=== PATIENT | female | born 1970 | race Two or more races ===

== ENCOUNTER → 2020-08-16 08:29 | Outpatient (BNVA) | payer MEDICARE, MEDICAID, SELFPAY | PROVIDERS: PCP Family Medicine; Referring Provider Family Medicine; Visit Provider Anesthesiology | DX: M54.16 Radiculopathy, lumbar region (principal); M46.1 Sacroiliitis, not elsewhere classified; G89.4 Chronic pain syndrome | CPT/HCPCS: 99212 ==

== ENCOUNTER 2020-12-29 06:18 | Day surgery (SDC) | payer MEDICARE, MEDICAID, SELFPAY ==
--- NOTE | ~2020-12-29 | FL_ITS ---
EXAMINATION: XR FLUOROSCOPY WITH IMAGES CLINICAL INFORMATION: spinal stim trial COMPARISON: None. TECHNIQUE: Fluoroscopy performed by Dr. Will Crane. Fluoroscopy time: 1.3 minutes DAP: 5.7 Gycm2 Images: 4 FL/FL guidance in OR FINDINGS/IMPRESSION: Spinal stimulator lead terminates at the level of T8 and T9, assuming 12 rib-bearing vertebral bodies. A separate stimulated lead is present along the posterior margin of the right sacral ala at the level of S3, likely in the region of the dorsal rami.
[2020-12-29 06:41] VITALS: BP 110/69; PULSE 55; RESP 18; TEMP 36.1; O2SAT 99; BMI 27.4
[2020-12-29] MEDS: Lactated Ringers 1,000 ML 50 ML IV (07:02)
--- NOTE | 2020-12-29 07:07 | MHC.SHP ---
Pre-Procedural Eval Section B Chief Complaint: Lumbar Radiculopathy Chronic, Sacroiliitis Details of Present Illness: as above Relevant Family History (Specify if Yes): No Relevant Social History: None Present Medications: see Short Stay [facility] assessment Medical History: No relevant PMH History of Previous Operations: No relevant previous surgery Allergies: Allergies Allergy/AdvReac Type Severity Reaction Status Date / Time apple [APPLE] Allergy Severe ANAPHYLAXIS Verified 12/29/20 06:39 morphine [MORPHINE] Allergy Severe RASH Verified 12/29/20 06:39 naproxen [From NAPROSYN] Allergy Severe ANAPHYLAXIS Verified 12/29/20 06:39 shellfish derived Allergy Severe RASH Verified 12/29/20 06:39 [SHELLFISH DERIVED] green apples Allergy Severe Anaphylaxis Uncoded 12/29/20 06:39 seafood Allergy Unknown Rash Uncoded 12/26/20 10:31 Review of Systems Sugical H&P ROS: Negative: Constitution, Cardiovascular, Respiratory, Neurological, Psychiatric, Hem-Onc, Allergic/Immunologic, Gastrointestinal, Genitourinary, Musculoskeletal, Integumentary, Endocrine and Eyes/Ears/Nose/Throat Exam Surgical H&P Exam: Normal: HEENT, Normal: Heart, Normal: Lungs, Normal: Extremities, Normal: Abdomen, Normal: Skin and Normal: Neurological Plan Diagnosis/Plan: Unchanged I have reviewed the history and physical and performed a pertinent physical examination on my patient. No changes have occurred unless specified.
--- NOTE | 2020-12-29 07:27 | HO.ANESPROP2 ---
[facility] Active Problems Active Problems: All Active Problems (Updated 12/26/20 @ 10:38 by Lynnette Ibarra) Chronic pain syndrome (Acute) Sacroiliitis (Acute) Lumbar radiculopathy, chronic (Acute) Past Medical History Medical History Anemia Anxiety Asthma Chronic back pain Chronic pain syndrome Depression GERD (gastroesophageal reflux disease) Hx of headache Lumbar radiculopathy, chronic Panic attacks Sacroiliitis Surgical History Surgical History History of toe surgery Hx of section Hx of cholecystectomy Hx of tubal ligation Social History Social History Smoking Status: Former smoker Use of substances other than those prescribed or required for medical reasons: No Advance Directives: No Advance Directives Information Provided: Yes Meds Allergies Allergy/AdvReac Type Severity Reaction Status Date / Time apple [APPLE] Allergy Severe ANAPHYLAXIS Verified 12/29/20 06:39 morphine [MORPHINE] Allergy Severe RASH Verified 12/29/20 06:39 naproxen [From NAPROSYN] Allergy Severe ANAPHYLAXIS Verified 12/29/20 06:39 shellfish derived Allergy Severe RASH Verified 12/29/20 06:39 [SHELLFISH DERIVED] green apples Allergy Severe Anaphylaxis Uncoded 12/29/20 06:39 seafood Allergy Unknown Rash Uncoded 12/26/20 10:31 Active Medications: Current Medications Generic Name Dose Route Start Last Admin Trade Name Freq PRN Reason Stop Dose Admin Lactated Ringer's 1,000 mls @ 50 mls/hr 12/28/20 08:15 12/29/20 07:02 Lr IV 50 mls/hr .Q20H JAKOB Administration Home Medications Medication Instructions Recorded Confirmed Last Taken Type albuterol sulfate 2 puff PO Q6H PRN 12/26/20 12/26/20 12/29/20 05:30 History amlodipine 1 tab PO DAILY 12/26/20 12/26/20 12/29/20 05:30 History bupropion HCl 1 tab PO DAILY 12/26/20 12/26/20 12/29/20 05:30 History clonidine HCl 1 tab PO BID 12/26/20 12/26/20 12/29/20 05:30 History gabapentin PO 12/26/20 12/29/20 05:30 History montelukast 1 tab PO DAILY 12/26/20 12/26/20 Unknown History olanzapine 1 tab PO BEDTIME 12/26/20 12/26/20 Unknown History omeprazole 1 cap PO BID 12/26/20 12/26/20 12/29/20 05:30 History oxcarbazepine 1 tab PO BID 12/26/20 12/26/20 12/29/20 05:30 History salmeterol [Serevent Diskus] 1 puff INHALATION BID 12/26/20 12/26/20 Unknown History Exam Exam Date and Time: December 29, 2020 0727 Height,Weight and Vital Signs: Height 5 ft 3 in Weight 70.307 kg Last Vital Signs Temp 96.9 F 12/29/20 06:41 Pulse 55 12/29/20 06:41 Resp 18 12/29/20 06:41 BP 110/69 12/29/20 06:41 Pulse Ox 99 12/29/20 06:41 Airway Mallampati Class: II TM Dist: >3cm Neck ROM: Full
[2020-12-29 08:45] VITALS: BP 122/87; PULSE 70; RESP 16; TEMP 36.2; O2SAT 98
--- NOTE | 2020-12-29 08:57 | P.BOP_ITS ---
Brief Operative Note Date of Service: 12/29/20 Pre-op diagnosis: Lumbar radiculopathy intractable lower back pain sacroiliitis Post-op diagnosis: same Procedure: Trial of [employer] spinal cord stimulator. Implants: None permanent Surgeon: Will Crane MD Anesthesia: MAC Estimated blood loss (mL): 0 Pathology: none sent Condition: stable Disposition: PACU
[2020-12-29 09:00] VITALS: BP 124/85; PULSE 71; RESP 16; O2SAT 100
--- NOTE | 2020-12-29 09:04 | W.PM.OPN ---
Operative Note Operative Note Date of Service: 12/29/20 Narrative: Ms. Box is very pleasant 50 years old female who came today into the operating room for trial of spinal cord stimulator for the treatment of pain related to spondylosis of the lumbar spine and left sacroiliitis as well as chronic pain syndrome. Preoperatively patient received 2 g cefazolin _approximately 30 minutes before the procedure. After obtaining informed consent patient was brought to the operating room, he was positioned prone on operating table, [place] [employer] monitors were applied and patient was deeply sedated. Time-out was performed delineating correct site, side, the nature of the procedure, patient's allergy, preoperative antibiotic. All operating room staff was participating in OR time-out procedure. Patient's entire back was prepped with ChloraPrep twice and draped with full body drape. Sterilely draped C-arm was brought over operating field and square picture of T12, L1, L2 vertebrae as were demonstrated on the screen. . Attention FIRST was concentrated on the RIGHT L1-L2 epidural interspace. The location of the projection of the right pedicle center of the L3 vertebra was found on the skin using C-arm. This location was injected with mixture of lidocaine 2% and Marcaine 0.5% 5 cc in approximate direction of needle advancement.. After that 10 cm 14 gauge straight introducer epidural needle was inserted through the skin and advanced toward L1-L2 epidural interspace. The advancement of the needle was performed on anterior posterior and lateral views. Guitar wire and loss of resistance technique were used to locate epidural space. When guitar wire was spread in the epidural fashion, epidural lead was inserted through the skin and it was advanced in the T8 posterior epidural space. After that attention was concentrated on the left sacroiliac joint area pain. 10 cm coude needle was inserted to the skin in the projection of about 2 cm nurse of the sacroiliac joints upper margin. The needle was advanced to were the sacral bone and after that fall of the curvature of the sacral bone to the point where the lower most portion of the sacroiliac joint is contacted. On the lateral view the needle was posterior to the sacral bone therefore covering innervation of sacroiliac joint. 16 electrode stimulating lead was inserted through the needle and advanced be on the lower margin of the sacroiliac joint. This way the stimulating lead would cover all the innervation of the sacroiliac joint on the left. After that the needle was withdrawn and both leads were connected to the stimulating devices. Patient felt appropriate stimulation on the left side. After that the epidural needle was withdrawn as well, local anesthetic was in injected in the projection of the entrance of the leads into the skin. The anchoring devices were dislodged to the level of the skin and sutured to the skin using 0 silk needle. The electrodes were connected to testing device sterile dressing were applied using bacitracin. . Sterile dressing was applied. At this moment patient was awaken and transferred to the bed. She was recovering uneventfully in PACU.
[2020-12-29 09:15] VITALS: BP 128/85; PULSE 67; RESP 16; TEMP 36.6; O2SAT 100
[2020-12-29] MEDS: oxyCODONE HCl Immed Release 5 MG TABLET 10 MG PO (09:49)
== END 2020-12-29 10:05 | disposition home or self-care (01) ==
LOC: HO.SSS 06:19
PROVIDERS: PCP Family Medicine; Visit Provider Anesthesiology
PROC: (CPT 63650; principal; 2020-12-29 07:30)
DX: M47.16 Other spondylosis with myelopathy, lumbar region (principal); M46.1 Sacroiliitis, not elsewhere classified; G89.4 Chronic pain syndrome; D64.9 Anemia, unspecified; J45.909 Unspecified asthma, uncomplicated; Z79.899 Other long term (current) drug therapy; Z88.8 Allergy status to other drugs, medicaments and biological substances; Z87.891 Personal history of nicotine dependence
CPT/HCPCS: 63650 ×2; C1778; C1897; J0690; J2250; J3010

== ENCOUNTER → 2021-01-04 14:46 | Outpatient (BNVA) | payer MEDICARE, MEDICAID, SELFPAY | PROVIDERS: PCP Family Medicine; Visit Provider Anesthesiology | DX: M54.16 Radiculopathy, lumbar region (principal); M46.1 Sacroiliitis, not elsewhere classified; G89.4 Chronic pain syndrome | CPT/HCPCS: 99212 ==

== ENCOUNTER 2021-04-24 11:34 | Emergency (ER) | payer MEDICARE, MEDICAID, SELFPAY ==
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
[2021-04-24 12:52] VITALS: BP 165/87; PULSE 63; RESP 18; TEMP 36.8; O2SAT 98; BMI 26.5
--- NOTE | 2021-04-24 14:01 | PC.NURSE ---
ATTEMPTED TO GRAB MEDS FOR PATIENT. PT OFF UNIT IN CT SCAN WILL MEDICATE UPON HER RETURN
[2021-04-24] MEDS: Acetaminophen 325 MG TABLET 975 MG PO (14:15)
[2021-04-24] MEDS: oxyCODONE HCl Immed Release 5 MG TABLET PO (14:16)
[2021-04-24 14:17] VITALS: BP 148/96; PULSE 80; RESP 16; O2SAT 97
[2021-04-24 14:59] VITALS: BP 134/78; PULSE 78; RESP 16
[2021-04-24 15:08] VITALS: RESP 16
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
== END 2021-04-24 16:28 | disposition home or self-care (01) ==
PROVIDERS: Emergency Provider Internal Medicine; PCP Family Medicine
DX: S00.11XA Contusion of right eyelid and periocular area, initial encounter (principal); S20.211A Contusion of right front wall of thorax, initial encounter; S80.02XA Contusion of left knee, initial encounter; S80.01XA Contusion of right knee, initial encounter; S60.211A Contusion of right wrist, initial encounter; S50.11XA Contusion of right forearm, initial encounter; S50.01XA Contusion of right elbow, initial encounter; Y04.2XXA Assault by strike against or bumped into by another person, initial encounter; R91.1 Solitary pulmonary nodule; Y93.84 Activity, sleeping; Y92.032 Bedroom in apartment as the place of occurrence of the external cause; Y99.9 Unspecified external cause status
CPT/HCPCS: 70450; 70486; 71250; 72125; 73090; 73110; 73130; 73564; 99284

== ENCOUNTER 2021-06-01 06:13 | Day surgery (SDC) | payer MEDICARE, MEDICAID, SELFPAY ==
--- NOTE | 2021-05-31 09:23 | HO.ANESPROP2 ---
Documented by User: Tisha Ford NP 05/31/21 09:25 HPI - Anesthesia Eval Consult details Narrative: 51yo F for Lumbar Spinal Stimulator and Sacroiliac Joint Innervation Implant s/p trial 12/2020 with TIVA Multiple allergies - Anaphylaxis with Morphine PMFSH Active Problems Active Problems: All Active Problems (Updated 04/25/21 @ 00:01 by Background Charly) Lung nodule < 6cm on CT (Acute) Chronic pain syndrome (Acute) Sacroiliitis (Acute) Lumbar radiculopathy, chronic (Acute) Past Medical History Medical History Anemia Anxiety Asthma Chronic back pain Chronic pain syndrome Depression GERD (gastroesophageal reflux disease) Hx of headache Lumbar radiculopathy, chronic Panic attacks Sacroiliitis Surgical History Surgical History History of toe surgery Hx of section Hx of cholecystectomy Hx of tubal ligation Social History Social History Alcohol intake: current Alcohol intake frequency: 0-2 drinks per day Patient Tobacco Use Status: Former Tobacco user Use of substances other than those prescribed or required for medical reasons: No Substance Use Type: Marijuana Are you DNR?: No Advance Directives: No Advance Directives Information Provided: Yes Recently lost weight without trying: No Nutrition Risks: No Nutritional Risk Meds Allergies Allergy/AdvReac Type Severity Reaction Status Date / Time apple [APPLE] Allergy Severe ANAPHYLAXIS Verified 05/25/21 13:12 morphine [MORPHINE] Allergy Severe RASH Verified 05/25/21 13:12 naproxen [From NAPROSYN] Allergy Severe ANAPHYLAXIS Verified 05/25/21 13:12 shellfish derived Allergy Severe RASH Verified 05/25/21 13:12 [SHELLFISH DERIVED] green apples Allergy Severe Anaphylaxis Uncoded 05/25/21 13:12 seafood Allergy Unknown Rash Uncoded 05/25/21 13:12 Home Medications Medication Instructions Recorded Confirmed Last Taken Type albuterol sulfate 90 mcg/actuation 2 puff PO Q6H PRN 12/26/20 05/25/21 12/29/20 05:30 History aerosol inhaler amlodipine 5 mg tablet 1 tab PO DAILY 12/26/20 05/25/21 06/01/21 05:00 History bupropion HCl 300 mg 24 hr tablet, 1 tab PO DAILY 12/26/20 05/25/21 06/01/21 05:00 History extended release clonidine HCl 0.1 mg tablet 1 tab PO BID 12/26/20 05/25/21 12/29/20 05:30 History gabapentin 300 mg capsule PO 12/26/20 12/29/20 05:30 History montelukast 10 mg tablet 1 tab PO DAILY 12/26/20 05/25/21 Unknown History olanzapine 10 mg tablet 1 tab PO BEDTIME 12/26/20 05/25/21 Unknown History omeprazole 20 mg capsule,delayed 1 cap PO BID 12/26/20 05/25/21 06/01/21 05:00 History release oxcarbazepine 600 mg tablet 1 tab PO BID 12/26/20 05/25/21 12/29/20 05:30 History salmeterol 50 mcg/dose blister 1 puff INHALATION BID 12/26/20 05/25/21 Unknown History powder for inhalation (Serevent Diskus) fluticasone propionate 220 2 puff PO BID 05/25/21 05/25/21 06/01/21 05:00 History mcg/actuation HFA aerosol inhaler (Flovent HFA) Exam Exam Date and Time: May 31, [id number] Assessment and Plan Assessment Anesthesia Assessment: Chart Reviewed Documented by User: Ashley Mendez MD 06/01/21 07:48 PMFSH Past Medical History Medical History Anemia Anxiety Asthma Chronic back pain Chronic pain syndrome Depression GERD (gastroesophageal reflux disease) Hx of headache Lumbar radiculopathy, chronic Panic attacks Sacroiliitis Surgical History Surgical History History of toe surgery Hx of section Hx of cholecystectomy Hx of tubal ligation History of Problems with Anesthesia: No Social History Social History Alcohol intake: current Alcohol intake frequency: 0-2 drinks per day Patient Tobacco Use Status: Former Tobacco user Use of substances other than those prescribed or required for medical reasons: No Substance Use Type: Marijuana Are you DNR?: No Advance Directives: No Advance Directives Information Provided: Yes Recently lost weight without trying: No Nutrition Risks: No Nutritional Risk Meds Allergies Allergy/AdvReac Type Severity Reaction Status Date / Time apple [APPLE] Allergy Severe ANAPHYLAXIS Verified 05/25/21 13:12 morphine [MORPHINE] Allergy Severe RASH Verified 05/25/21 13:12 naproxen [From NAPROSYN] Allergy Severe ANAPHYLAXIS Verified 05/25/21 13:12 shellfish derived Allergy Severe RASH Verified 05/25/21 13:12 [SHELLFISH DERIVED] green apples Allergy Severe Anaphylaxis Uncoded 05/25/21 13:12 seafood Allergy Unknown Rash Uncoded 05/25/21 13:12 Home Medications Medication Instructions Recorded Confirmed Last Taken Type albuterol sulfate 90 mcg/actuation 2 puff PO Q6H PRN 12/26/20 05/25/21 12/29/20 05:30 History aerosol inhaler amlodipine 5 mg tablet 1 tab PO DAILY 12/26/20 05/25/21 06/01/21 05:00 History bupropion HCl 300 mg 24 hr tablet, 1 tab PO DAILY 12/26/20 05/25/21 06/01/21 05:00 History extended release clonidine HCl 0.1 mg tablet 1 tab PO BID 12/26/20 05/25/21 12/29/20 05:30 History gabapentin 300 mg capsule PO 12/26/20 12/29/20 05:30 History montelukast 10 mg tablet 1 tab PO DAILY 12/26/20 05/25/21 Unknown History olanzapine 10 mg tablet 1 tab PO BEDTIME 12/26/20 05/25/21 Unknown History omeprazole 20 mg capsule,delayed 1 cap PO BID 12/26/20 05/25/21 06/01/21 05:00 History release oxcarbazepine 600 mg tablet 1 tab PO BID 12/26/20 05/25/21 12/29/20 05:30 History salmeterol 50 mcg/dose blister 1 puff INHALATION BID 12/26/20 05/25/21 Unknown History powder for inhalation (Serevent Diskus) fluticasone propionate 220 2 puff PO BID 05/25/21 05/25/21 06/01/21 05:00 History mcg/actuation HFA aerosol inhaler (Flovent HFA) Exam Airway Mallampati Class: II TM Dist: >3cm Neck ROM: Full Partial: Upper Loose/Missing/Broken Teeth: Yes and Upper Heart: RRR Lungs: CTA Assessment and Plan Assessment Anesthesia Assessment: Anesthesia Plan Discussed Final Anesthetic Review History of Problems with Anesthesia: No NPO: Yes ASA Class: II Final Preanesthetic Review: Meds/Allgs Chart Reviewed, Consent Obtained/Reviewed and Anes Risks/Benef Reviewed Patient Risk: Low Procedure Risk: Intermediate Anesthetic Plan Anesthetic Plan: MAC: Disposition: Standard PACU
--- NOTE | 2021-05-31 20:56 | MHC.SHP ---
Pre-Procedural Eval Section A Date of Service: 05/31/21 Section B Chief Complaint: Lumbar Radiculopathy chronic, Sacroiliitis Details of Present Illness: as above Relevant Social History: None Present Medications: see Short Stay Collaborative assessment Medical History: No relevant PMH History of Previous Operations: Relevant previous surgery/procedure and date(s) Allergies: Allergies Allergy/AdvReac Type Severity Reaction Status Date / Time apple [APPLE] Allergy Severe ANAPHYLAXIS Verified 05/25/21 13:12 morphine [MORPHINE] Allergy Severe RASH Verified 05/25/21 13:12 naproxen [From NAPROSYN] Allergy Severe ANAPHYLAXIS Verified 05/25/21 13:12 shellfish derived Allergy Severe RASH Verified 05/25/21 13:12 [SHELLFISH DERIVED] green apples Allergy Severe Anaphylaxis Uncoded 05/25/21 13:12 seafood Allergy Unknown Rash Uncoded 05/25/21 13:12 Review of Systems Sugical H&P ROS: Negative: Constitution, Cardiovascular, Respiratory, Neurological, Psychiatric, Hem-Onc, Allergic/Immunologic, Gastrointestinal, Genitourinary, Musculoskeletal, Integumentary, Endocrine and Eyes/Ears/Nose/Throat Exam Surgical H&P Exam: Normal: HEENT, Normal: Heart, Normal: Lungs, Normal: Extremities, Normal: Abdomen, Normal: Skin and Normal: Neurological Plan Diagnosis/Plan: Unchanged I have reviewed the history and physical and performed a pertinent physical examination on my patient. No changes have occurred unless specified.
--- NOTE | 2021-05-31 21:21 | P.OP_ITS ---
Operative Note Operative Note Date of Service: 06/01/21 Narrative: Implant spinal cord stimulator [employer]. Don is very pleasant 51 years old female came today into the operating room for implantation of spinal cord stimulator for the treatment of pain related to degenerative disc disease and spondylosis of the lumbar spine. ? She had successful trial of spinal cord stimulation.? Preoperatively patient received? 2. g cefazolin _approximately 30 minutes before the procedure. After obtaining informed consent patient was brought to the operating room,? he was positioned prone on operating table, [employer] [employer] monitors were applied and patient was deeply sedated. ?? Time-out was performed delineating correct site, side, the nature of the procedure, patient's allergy, preoperative antibiotic.? All operating room staff was participating in OR time-out procedure. Patient's entire back was prepped with ChloraPrep twice and draped with full body drape including Ioban film.? Sterilely draped C-arm was brought over operating field and sqare picture of T12, L1, L2 vertebrae were demonstrated on the screen.? THE PROJECTION OF L2-L3 SPINAL PROCESSES TO THE SKIN WERE INFILTRATED WITH LIDOCAINE 2% MIXED WITH BUPIVACAINE 0.5%.? Six CM LONG VERTICAL INCISION using 10 blade scalpel WAS PERFORMED IN STRICT MIDLINE VERTICAL FASHION.? THOROUGH HEMOSTASIS WAS PERFORMED using electrocautery.? ?Thorough tissue dissections was performed until prevertebral fascia was freed from overlying tissues.? Attention FIRST? was concentrated on the RIGHT? L1-L2 epidural interspace.? The location of the projection of the right pedicle center of the L3 vertebra was found on the prevertebral fascia using C-arm.? This location was injected with mixture of lidocaine 2% and Marcaine 0.5% 5 cc in approximate direction of needle advancement..? After that ? 10 cm 14 gauge Straight introducer epidural needle was inserted through the fascia and advanced toward L1-L2 epidural interspace.? The advancement of the needle was performed on anterior posterior and lateral views.? Guitar wire and loss of resistance technique were used to locate epidural space.? When guitar wire was spread in the epidural fashion, epidural lead was inserted through needle and started to advance in epidural space to were the thoracic vertebra as. The advancement when very difficult. The patient had adhesions in the projection of T12-L1 interspace and it took several attempts to advance the lead to mid T8 position POSTERIOR EPIDURAL SPACE slightly right TO THE MIDLINE.? After that location of the projection of the LEFT pedicle center of the? L2 vertebra was found -using C-arm.? This location was injected with mixture of lidocaine 2% and Marcaine 0.5% 5 cc.. .? Initially 16 cm 14 gauge? straight introducer epidural needle was inserted through the fascia and advanced to T12- L1 epidural interspace. Unfortunately due to very sharp angle of advancement I was not able to advance my epidural needle to T12-L1 epidural interspace. Instead decision was made to go back to L1-L2 level. The 10 cm 14 gauge needle was used to advance to L1-L2 level using loss of resistance technique. The advancement of the needle was performed on anterior posterior and lateral views.? Guitar wire and loss of resistance technique were used to locate epidural space.? When guitar wire was spread in the epidural fashion, epidural lead was inserted through the needle and advanced to the? mid-T8 POSTERIOR EPIDURAL SPACE SLIGHTLY left TO THE MIDLINE.? THE LOCATION OF BOTH LEADS WAS VERIFIED ON ANTERIOR POSTERIOR AND LATERAL VIEWS. At this moment patient was awaken and the epidural leads were connected to the testing device.? The patient reported stimulation corresponding to his pain.? After satisfactory position of the leads were established the needles were withdrawn, the stylette wires were removed from the epidural leads.? The anchoring devices were dislodged on the leads and advanced to the level of the skin.? The anchoring devices were advanced along the epidural leads and dislo dged and epidural leads at the level of prevertebral fascia.? They were sutured to prevertebral fascia with 2 separate? Tycron 1.0 sutures per each anchoring device.? anchoring screw was tight until 3 clicks were heard on each anchoring device.After that the wound was irrigated with copious amount of Vancomycin containing normal saline and packed with Vancomycin soaked 4 x 4. After that attention was concentrated on the left upper buttock of the patient where the patient had her battery to be implanted.? 6 cm long horizontal incision was performed 3 cm below the TOP right iliac crest.? Thorough hemostasis was obtained.? The wound was irrigated with copious amount of Vancomycin contained normal saline.? Tunneling device was used to connect the 2 wounds and epidural leads were dislodged into side wound.? They were connected to the Watchsends battery and locked with a locking screwdriver device.? the care was taken also to make sure that plaques for upper? outlets screwed in place. After that the anchoring sutures Tycron were applied in the most superior medial and most superior lateral corners of the wound.? After that they were connected to the anchoring holes on the body of the battery, the epidural leads were gathered? behind the body of the ALPHA battery, the battery and the leads were inserted into the pocket wound and after that the anchoring 2 sutures were tied.? The wounds were irrigated again with Vancomycin containing normal saline, thorough hemostasis was checked, and after that the wounds were closed using 0 Vicryl.? After that the skin edges wore approximated using 2 0 Vicryl, niko were applied to the wounds at the level of the skin.? Bacitracin ointment was applies to the level of the niko and sterile dressings were applied to the staple lines. ? MediPort tape was used to hold the dressing to the patient's skin.? Abdominal binder to wear was provided to the patient.? At this moment patient was awaken and transferred to the bed.? SHE was recovering uneventfully in PACU.? ?
--- NOTE | ~2021-06-01 | FL_ITS ---
EXAMINATION: XR FLUOROSCOPY WITH IMAGES CLINICAL INFORMATION: Spinal stimulator COMPARISON: Previous exam December 2020 TECHNIQUE: Fluoroscopy performed by Dr. Will Crane. Fluoroscopy time: 8 minutes DAP 29 rush per centimeter squared. Images: 9 FINDINGS: Images demonstrate lead in the thoracic spinal canal. FL/FL guidance in OR IMPRESSION: Fluoroscopy guidance for spinal stimulator placement.
[2021-06-01 06:30] VITALS: BMI 26.5
[2021-06-01 06:44] VITALS: BP 126/88; PULSE 64; RESP 16; TEMP 36.3; O2SAT 100
[2021-06-01] MEDS: Lactated Ringers 1,000 ML 100 ML IVCONT (06:52)
[2021-06-01 11:09] VITALS: BP 138/97; PULSE 68; RESP 16; TEMP 36.6; O2SAT 100
--- NOTE | 2021-06-01 11:12 | P.BOP_ITS ---
Brief Operative Note Date of Service: 06/01/21 Pre-op diagnosis: Chronic pain syndrome, low back pain, Spondylosis lumbar spine. Post-op diagnosis: same Procedure: Implantation of [employer] spinal cord stimulator and two epidural leads pain Implants: [employer] L5 Surgeon: iWll Crane MD Anesthesia: MAC Was an [employer] Magistrate used for this Procedure?: No Estimated blood loss (mL): 20 Pathology: none sent Condition: stable Disposition: PACU
[2021-06-01] MEDS: oxyCODONE HCl Immed Release 5 MG TABLET 10 MG PO (11:18)
[2021-06-01] MEDS: Acetaminophen 325 MG TABLET 650 MG PO (11:19)
[2021-06-01 11:24] VITALS: BP 156/99; PULSE 72; RESP 18; O2SAT 100
[2021-06-01 11:39] VITALS: BP 130/71; PULSE 73; RESP 18; O2SAT 100
[2021-06-01] MEDS: ondansetron HCL 4 MG/2 ML VIAL IVPUSH (11:42)
[2021-06-01 11:45] VITALS: PULSE 73; RESP 18; O2SAT 100
[2021-06-01 12:06] VITALS: BP 153/90; PULSE 67; RESP 18; TEMP 36.4; O2SAT 97
== END 2021-06-01 12:40 | disposition home or self-care (01) ==
PROVIDERS: PCP Family Medicine; Visit Provider Anesthesiology
PROC: (CPT 63685; principal; 2021-06-01 07:30)
DX: M47.26 Other spondylosis with radiculopathy, lumbar region (principal); M51.16 Intervertebral disc disorders with radiculopathy, lumbar region; M46.1 Sacroiliitis, not elsewhere classified; G89.4 Chronic pain syndrome; Z88.6 Allergy status to analgesic agent
CPT/HCPCS: 63685; 63650 ×2; C1713; C1778; C1787; C1820; J0690; J1100; J2250; J2405; J3010; J3370

== ENCOUNTER → 2021-06-07 10:54 | Outpatient (BNVA) | payer MEDICARE, MEDICAID, SELFPAY | PROVIDERS: PCP Family Medicine; Visit Provider Anesthesiology | DX: M46.1 Sacroiliitis, not elsewhere classified (principal); G89.4 Chronic pain syndrome | CPT/HCPCS: 99212 ==

== ENCOUNTER → 2021-06-14 11:06 | Outpatient (BNVA) | payer MEDICARE, MEDICAID, SELFPAY | PROVIDERS: PCP Family Medicine; Visit Provider Anesthesiology | DX: M54.16 Radiculopathy, lumbar region (principal); M46.1 Sacroiliitis, not elsewhere classified; G89.4 Chronic pain syndrome | CPT/HCPCS: 99212 ==

== ENCOUNTER 2021-06-30 09:49 | Emergency (ER) | payer MEDICARE, MEDICAID, SELFPAY ==
--- NOTE | ~2021-06-30 | XR_ITS ---
EXAMINATION: XR WRIST, LEFT CLINICAL INFORMATION: Pain. COMPARISON: None TECHNIQUE: PA, lateral, and oblique views of the left wrist. FINDINGS: The bones and soft tissues are normal. No fracture. Alignment is anatomic with normal joint spaces. No erosions or abnormal soft tissue calcifications. XR/XR wrist LT 2V IMPRESSION: Unremarkable left wrist exam.
[2021-06-30 09:52] VITALS: BP 142/91; PULSE 64; RESP 18; TEMP 36.8; O2SAT 99; BMI 27.4
--- NOTE | 2021-06-30 11:07 | ED.EXTPRO ---
HPI - Extremity Problem General Chief complaint: Extremity Problem Stated complaint: lt wrist pain Time Seen by Provider: 06/30/21 11:06 Source: patient Mode of arrival: ambulatory Limitations: no limitations History of Present Illness HPI Narrative: c/o left wrist pain X 3 Days,no trauma,rt handed pt,no systemic symtoms Complaint: extremity pain Onset (ago): day(s) (3) Pain Consistency: constant Location: left Quality: aching Radiation: none Relieving factors: nothing Exacerbating factors: nothing Related Data Home Medications Medication Instructions Recorded Confirmed albuterol sulfate 90 mcg/actuation 2 puff PO Q6H PRN 12/26/20 05/25/21 aerosol inhaler amlodipine 5 mg tablet 1 tab PO DAILY 12/26/20 05/25/21 bupropion HCl 300 mg 24 hr tablet, 1 tab PO DAILY 12/26/20 05/25/21 extended release clonidine HCl 0.1 mg tablet 1 tab PO BID 12/26/20 05/25/21 gabapentin 300 mg capsule PO 12/26/20 montelukast 10 mg tablet 1 tab PO DAILY 12/26/20 05/25/21 olanzapine 10 mg tablet 1 tab PO BEDTIME 12/26/20 05/25/21 omeprazole 20 mg capsule,delayed 1 cap PO BID 12/26/20 05/25/21 release oxcarbazepine 600 mg tablet 1 tab PO BID 12/26/20 05/25/21 salmeterol 50 mcg/dose blister 1 puff INHALATION BID 12/26/20 05/25/21 powder for inhalation (Serevent Diskus) fluticasone propionate 220 2 puff PO BID 05/25/21 05/25/21 mcg/actuation HFA aerosol inhaler (Flovent HFA) Previous Rx's Medication Instructions Recorded tizanidine 4 mg tablet 4 mg PO TID PRN 30 Days #90 tab 10/10/20 acetaminophen 500 mg tablet 1,000 mg PO QID PRN #14 tab 04/24/21 (Tylenol Extra Strength) oxycodone 5 mg tablet 5 mg PO BID PRN #10 tab 04/24/21 cephalexin 500 mg tablet 1,000 mg PO Q8H 14 Days #84 tab 06/01/21 eszopiclone 1 mg tablet (Lunesta) 1 mg PO BEDTIME 30 Days #30 tab 06/07/21 suvorexant 5 mg tablet (Belsomra) 5 mg PO BEDTIME 30 Days #30 tab 06/11/21 tramadol 50 mg tablet 50 mg PO Q8H PRN #7 tab 06/30/21 Allergies Allergy/AdvReac Type Severity Reaction Status Date / Time apple [APPLE] Allergy Severe ANAPHYLAXIS Verified 06/14/21 11:18 morphine [MORPHINE] Allergy Severe RASH Verified 06/14/21 11:18 naproxen [From NAPROSYN] Allergy Severe ANAPHYLAXIS Verified 06/14/21 11:18 shellfish derived Allergy Severe RASH Verified 06/14/21 11:18 [SHELLFISH DERIVED] green apples Allergy Severe Anaphylaxis Uncoded 05/25/21 13:12 seafood Allergy Unknown Rash Uncoded 05/25/21 13:12 Review of Systems Review of Systems: Yes all other systems are reviewed and are negative Constitutional: Constitutional: Reports no additional constitutional complaints Cardiovascular: Cardiovascular: Reports no additional cardiovascular complaints Gastrointestinal: Gastrointestinal: Reports no additional gastrointestinal complaints PMFSH Past Medical History Attestation statement: The following information was validated with the patient. Medical History Anemia Anxiety Asthma Chronic back pain Chronic pain syndrome Depression GERD (gastroesophageal reflux disease) Hx of headache Lumbar radiculopathy, chronic Panic attacks Sacroiliitis Surgical History History of toe surgery Hx of section Hx of cholecystectomy Hx of tubal ligation Social History Social History Alcohol intake: current Alcohol intake frequency: 0-2 drinks per day Patient Tobacco Use Status: Former Tobacco user Substance Use Type: Marijuana Advance Directives: No Advance Directives Information Provided: No Patient : No Physical Exam Vital Signs: Vital Signs: Last Vital Signs Temp 98.3 F 06/30/21 09:52 Pulse 64 06/30/21 09:52 Resp 18 06/30/21 09:52 BP 142/91 H 06/30/21 09:52 Pulse Ox 99 06/30/21 09:52 Body Mass Index 27.4 Const: General: cooperative, healthy appearing, comfortable, no acute distress, well developed, alert and awake HENMT: Head: Yes normal to inspection Ears: hearing grossly normal bilaterally Face and sinus: Yes normal facial exam Neck: Neck: Yes full ROM Chest: Chest palpation & inspection: normal inspection of the chest Resp: Effort & Inspection: normal respiratory effort Auscultation: clear to auscultation bilaterally Cardio: Jugular venous distension: no JVD Rate: regular rate Rhythm: regular rhythm GI: Inspection: Yes normal to inspection Palpation (GI): Soft to palpation, not firm, nontender and no guarding Extrem: Other: tenderness left wrist,no deformity,no redness MDM - Extremity (Nontraumatic) Imaging Data left wrist: Radiologist's impression: EXAMINATION: XR WRIST, LEFT CLINICAL INFORMATION: Pain.? COMPARISON: None? TECHNIQUE: PA, lateral, and oblique views of the left wrist. FINDINGS: The bones and soft tissues are normal. No fracture. Alignment is anatomic with normal joint spaces. No erosions or abnormal soft tissue calcifications.? XR/XR wrist LT 2V IMPRESSION: Unremarkable left wrist exam. ? Dictated By: Christopher Crowder MD Signed By: <Electronically signed by Christopher Crowder MD in OV> 06/30/21 1036 DD/ 1012 Discharge Plan Discharge Clinical Impression: Acute wrist pain Patient Disposition: Home, Self-Care Prescriptions: New tramadol 50 mg tablet 50 mg PO Q8H PRN (Reason: pain) Qty: 7 RF: 0 No Action tizanidine 4 mg tablet 4 mg PO TID PRN (Reason: muscle spasticity) 30 Days Qty: 90 RF: 11 cephalexin 500 mg tablet 1,000 mg PO Q8H 14 Days Qty: 84 RF: 1 Belsomra 5 mg tablet 5 mg PO BEDTIME 30 Days Qty: 30 RF: 0 Flovent HFA 220 mcg/actuation HFA aerosol inhaler 2 puff PO BID RF: 0 clonidine HCl 0.1 mg tablet 1 tab PO BID RF: 0 olanzapine 10 mg tablet 1 tab PO BEDTIME RF: 0 amlodipine 5 mg tablet 1 tab PO DAILY RF: 0 Serevent Diskus 50 mcg/dose blister with device 1 puff inhalation BID RF: 0 gabapentin 300 mg capsule PO RF: 0 omeprazole 20 mg capsule,delayed release(DR/EC) 1 cap PO BID RF: 0 oxcarbazepine 600 mg tablet 1 tab PO BID RF: 0 montelukast 10 mg tablet 1 tab PO DAILY RF: 0 albuterol sulfate 90 mcg/actuation HFA aerosol inhaler 2 puff PO Q6H PRN (Reason: wheezing) RF: 0 bupropion HCl 300 mg tablet extended release 24 hr 1 tab PO DAILY RF: 0 acetaminophen [Tylenol Extra Strength] 500 mg tablet 1,000 mg PO QID PRN (Reason: fever or pain) Qty: 14 RF: 0 oxycodone 5 mg tablet 5 mg PO BID PRN (Reason: pain) Qty: 10 RF: 0 eszopiclone [Lunesta] 1 mg tablet 1 mg PO BEDTIME 30 Days Qty: 30 RF: 5 Referrals: Mann Dudley MD [Primary Care Provider] - 3 days Interventions: ED Discharge Assessment Last Done: 06/30/21 11:29 Discharge Date/Time: 06/30/21 11:30
== END 2021-06-30 11:30 | disposition home or self-care (01) ==
PROVIDERS: Emergency Provider Emergency Medicine; PCP Family Medicine
DX: M25.532 Pain in left wrist (principal); Z79.899 Other long term (current) drug therapy; Z87.891 Personal history of nicotine dependence; F12.90 Cannabis use, unspecified, uncomplicated
CPT/HCPCS: 73100; 99282; 99283

== ENCOUNTER 2024-02-26 09:17 | Emergency (ER) | payer MEDICARE, MEDICAID, SELFPAY ==
[2024-02-26 09:19] VITALS: BP 136/86; PULSE 68; RESP 16; TEMP 37.1; O2SAT 98; BMI 32.8
[2024-02-26] MEDS: Tetracaine HCl/PF 0.5% Oph Sol 4 ML DROPS 1 DROP EYE-BOTH (10:26)
[2024-02-26] MEDS: Fluorescein Sodium STRIP 1 STRIP EYE-BOTH (10:26)
--- NOTE | 2024-02-26 10:35 | ED_ITS ---
HPI - Eye Problem General Chief complaint: Eye Problems Stated complaint: Swelling both eyes Time Seen by Provider: 02/26/24 10:02 Source: patient Mode of arrival: ambulatory Limitations: no limitations History of Present Illness ED Provider: LOKI WALLS PA-C HPI Narrative: 53-year-old female with past medical history significant for anxiety, anemia, asthma, GERD presents to the ED today for evaluation of bilateral eye swelling x5 days. Reports symptoms began as eye irritation/redness. She was seen by her primary care provider on Friday (4 days ago) and was prescribed erythromycin ointment for this. She reports using this as prescribed with minimal improvement. He reports over the last few days, her eyes have become more swollen. Endorses associated blurry vision as she is having trouble opening the eye. Denies drainage or morning crusting. Denies pain with eye movements. She has not taking any other [id number] medications for this at home. Reports history of seasonal allergies however they have been fairly controlled. She has not been taking any allergy medications at home. Denies fever, chills, headache, dizziness, vision loss, double vision, eye pain, sore throat, cough, ear pain, nausea or vomiting. Related Data Home Medications ?Medication ?Instructions ?Recorded ?Confirmed albuterol sulfate 90 mcg/actuation 2 puff PO Q6H PRN wheezing 12/26/20 05/25/21 aerosol inhaler amlodipine 5 mg tablet 1 tab PO DAILY 12/26/20 05/25/21 bupropion HCl 300 mg 24 hr tablet, 1 tab PO DAILY 12/26/20 05/25/21 extended release clonidine HCl 0.1 mg tablet 1 tab PO BID 12/26/20 05/25/21 gabapentin 300 mg capsule PO 12/26/20 montelukast 10 mg tablet 1 tab PO DAILY 12/26/20 05/25/21 olanzapine 10 mg tablet 1 tab PO BEDTIME 12/26/20 05/25/21 omeprazole 20 mg capsule,delayed 1 cap PO BID 12/26/20 05/25/21 release oxcarbazepine 600 mg tablet 1 tab PO BID 12/26/20 05/25/21 salmeterol 50 mcg/dose blister 1 puff inhalation BID 12/26/20 05/25/21 powder for inhalation (Serevent Diskus) fluticasone propionate 220 2 puff PO BID 05/25/21 05/25/21 mcg/actuation HFA aerosol inhaler (Flovent HFA) Previous Rx's ?Medication ?Instructions ?Recorded tizanidine 4 mg tablet 4 mg PO TID PRN muscle spasticity 10/10/20 30 days #90 tabs acetaminophen 500 mg tablet 1,000 mg (2 x 500 mg) PO QID PRN 04/24/21 (Tylenol Extra Strength) fever or pain #14 tabs oxycodone 5 mg tablet 5 mg PO BID PRN pain #10 tabs 04/24/21 cephalexin 500 mg tablet 1,000 mg (2 x 500 mg) PO Q8H 14 06/01/21 days #84 tabs eszopiclone 1 mg tablet (Lunesta) 1 mg PO BEDTIME 30 days #30 tabs 06/07/21 suvorexant 5 mg tablet (Belsomra) 5 mg PO BEDTIME 30 days #30 tabs 06/11/21 tramadol 50 mg tablet 50 mg PO Q8H PRN pain #7 tabs 06/30/21 cetirizine 0.24 % eye drops in a 1 drp ophthalmic (eye) BID 1 week 02/26/24 dropperette #30 ea prednisone 20 mg tablet 40 mg (2 x 20 mg) PO DAILY 4 days 02/26/24 #8 tabs Allergies Allergy/AdvReac Type Severity Reaction Status Date / Time apple [APPLE] Allergy Severe ANAPHYLAXIS Verified 02/26/24 09:21 morphine [MORPHINE] Allergy Severe RASH Verified 02/26/24 09:21 naproxen [From NAPROSYN] Allergy Severe ANAPHYLAXIS Verified 02/26/24 09:21 shellfish derived Allergy Severe RASH Verified 02/26/24 09:21 [SHELLFISH DERIVED] green apples Allergy Severe Anaphylaxis Uncoded 05/25/21 13:12 seafood Allergy Unknown Rash Uncoded 05/25/21 13:12 Review of Systems Review of Systems: Constitutional: No fever, chills, fatigue, night sweats, weight changes ENT/Mouth: No ear pain, hearing loss, nasal congestion, sinus pain, rhinorrhea, sore throat Eyes: No eye pain, vision changes, discharge, +eye irritation/ swelling Cardio: No chest pain, palpitations, RAHMAN, orthopnea, peripheral edema Pulm: No SOB, cough, sputum, wheezing, dyspnea, hemoptysis GI: No nausea, vomiting, hematemesis, abdominal pain, diarrhea, constipation, hematochezia, melena : No irregular bleeding, dysuria, frequency, urgency, hesitancy, hematuria, flank pain, urinary flow changes, urinary incontinence or retention MSK: No back pain, neck pain, joint pain, myalgias Skin: No lesions, rashes Neuro: No weakness, numbness, paresthesias, LOC, dizziness, headache Psych: No anxiety/panic, depression, SI/HI, AH/VH All other systems reviewed and are negative. [facility] Past Medical History Attestation statement: The following information was validated with the patient. Source: old records reviewed and nursing notes reviewed Medical History Anxiety GERD (gastroesophageal reflux disease) Anemia Hx of headache Panic attacks Depression Chronic back pain Asthma Chronic pain syndrome Sacroiliitis Lumbar radiculopathy, chronic Surgical History History of toe surgery Hx of cholecystectomy Hx of tubal ligation Hx of section Social History Social History Alcohol intake: current Alcohol intake frequency: 0-2 drinks per day Comment: medicated with Oxycodone as per order Patient Tobacco Use Status: Former Tobacco user Substance Use Type: Marijuana Advance Directives: No Advance Directives Information Provided: Yes Physical Exam Vital Signs: Vital Signs: Last Vital Signs Temp 98.2 F 02/26/24 11:50 Pulse 72 02/26/24 11:50 Resp 16 02/26/24 11:50 BP 128/83 02/26/24 11:50 Pulse Ox 97 02/26/24 11:50 O2 Del Method Room Air 02/26/24 11:50 BMI result Body Mass Index 32.8 Vital signs stable, afebrile Const: General: cooperative, healthy appearing, comfortable and no acute distress Orientation/consciousness: patient oriented x3 Limitations: no limitations HEENT: Head: Yes normal to inspection, Yes No palpable skull fracture present, Yes normocephalic and Yes atraumatic Ears: hearing grossly normal bilaterally, external ears normal, TM's normal bilaterally, EAC's normal, mastoids normal and no periauricular adenopathy Eyes: Other: + noted periorbital swelling, left great er than right. no overlying cellulitic changes. chemosis noted to left conjunctiva. Injected conjunctiva bilaterally. No obvious foreign body or corneal abrasion. On tetracaine/fluorescein examination, no reuptake to indicate abrasion or foreign body. No hyphema. No enophthalmos or exophthalmos. EOMs intact without pain or entrapment. + IOP OD 22, IOP OS 23. Uncorrected VA O D 20/50, VA OS 20/70, bilateral 20/50 Pupils: Equal, round and reactive pupils present Neuro: General: patient oriented x3 Cranial nerves: Yes Equal, round and reactive pupils present Course Course Course Narrative: 1139-- Physical exam consistent with allergic conjunctivitis. Cetirizine eye drops sent to pharmacy for treatment. IOP is WNL. There is no concern for acute angle closure glaucoma. There is no corneal abrasion or foreign body noted on fluorescein/tetracaine examination. No concern for periorbital or periorbital cellulitis at this time. Patient is agreeable with plan. Patient has remained stable throughout ED visit today. Discussed worrisome signs and symptoms and when to return to the ED. All questions answered at this time. Patient is agreeable with disposition and stable for discharge. Medications Administered Discontinued Medications Generic Name Dose Route Start Last Admin Trade Name Freq PRN Reason Stop Dose Admin Diphenhydramine HCl 50 mg 02/26/24 10:59 02/26/24 11:20 Diphenhydramine Hcl 25 Mg Capsule PO 02/26/24 11:00 50 mg ONCE ONE Administration Fluorescein Sodium 1 strip 02/26/24 10:04 02/26/24 10:26 Fluorescein Sodium Strip EYE-BOTH 02/26/24 10:05 1 strip ONCE ONE Administration Prednisone 40 mg 02/26/24 10:59 02/26/24 11:20 Prednisone 20 Mg Tablet PO 02/26/24 11:00 40 mg ONCE ONE Administration Tetracaine HCl 1 drop 02/26/24 10:05 02/26/24 10:26 Tetracaine Hcl/Pf 0.5% Oph Juanita 4 Ml Drops EYE-BOTH 02/26/24 10:06 1 drop ONCE ONE Administration Medical Decision Making Medical Decision Making MDM Narrative: 53-year-old female with past medical history significant for anxiety, anemia, asthma, GERD presents to the ED today for evaluation of bilateral eye swelling x5 days. Vital signs stable, afebrile. She is nontoxic-appearing and in no acute distress. On exam, noted periorbital swelling, left greater than right. no overlying cellulitic changes. chemosis noted to left conjunctiva. Injected conjunctiva bilaterally. No obvious foreign body or corneal abrasion. On tetracaine/fluorescein examination, no reuptake to indicate abrasion or foreign body. No hyphema. No enophthalmos or exophthalmos. EOMs intact without pain or entrapment. IOP OD 22, IOP OS 23. Uncorrected VA OD 20/50, VA OS 20/70, bilateral 20/50. Sinuses nontender. Differential diagnosis includes viral conjunctivitis, allergic conjunctivitis, bacterial conjunctivitis. Unlikely glaucoma, corneal abrasion, corneal foreign body, globe rupture, blood fracture, periorbital or orbital cellulitis. Plan for visual acuity, IOP, fluorescein/tetracaine examination, medication and re-evaluation. Differential Diagnosis Differential Diagnoses: The differential diagnosis associated with the presentation includes as above. Admission/Observation Not indicated Independent Historian Clinical information obtained from an independent historian. History obtained from or confirmed by: Spouse () External Record Review External record reviewed: Inpatient record, Office record, Outpatient record, Prior outpatient labs, Prior outpatient radiology, Primary care record and Outside ED record Prescription Management I considered prescription management with: Other (Cetirizine eye drops) Social Determinants Patient?s care significantly limited by Social Determinants of Health including: Other Social Determinant of Health Critical Care Time Critical Care Time Critical Care Time: No Discharge Plan Discharge Clinical Impression: Acute allergic conjunctivitis of both eyes Patient Disposition: Home, Self-Care Instructions: Conjunctivitis (ED) Additional Instructions: You have allergic conjunctivitis Treatment for this is with antihistamine eye drops. Cetirizine eye drops have been sent to your pharmacy. Apply one drop into each eye twice daily for 1 week. Prednisone is a steroid that has been sent to your pharmacy. You were given one dose in ED today. Take your next does tomorrow. Take benadryl as needed for swelling. Follow up with your primary care provider. You have also been provided with a referral to an poolroom/poolhall manager. You may call them to make an appointment. They will not call you. Return with new or worsening symptoms. In the case of an emergency call 911. Prescriptions: New cetirizine 0.24 % dropperette 1 drp ophthalmic (eye) BID 7 Days Qty: 30 0RF prednisone 20 mg tablet 40 mg PO DAILY 4 Days Qty: 8 0RF No Action tizanidine 4 mg tablet 4 mg PO TID PRN (Reason: muscle spasticity) 30 Days Qty: 90 11RF cephalexin 500 mg tablet 1,000 mg PO Q8H 14 Days Qty: 84 1RF Rx Instructions: Take OTC probiotics 25 billion cultures in between the doses of the antibiotics with food Belsomra 5 mg tablet 5 mg PO BEDTIME 30 Days Qty: 30 0RF Flovent HFA 220 mcg/actuation HFA aerosol inhaler 2 puff PO BID clonidine HCl 0.1 mg tablet 1 tab PO BID olanzapine 10 mg tablet 1 tab PO BEDTIME amlodipine 5 mg tablet 1 tab PO DAILY Serevent Diskus 50 mcg/dose blister with device 1 puff inhalation BID gabapentin 300 mg capsule PO omeprazole 20 mg capsule,delayed release(DR/EC) 1 cap PO BID oxcarbazepine 600 mg tablet 1 tab PO BID montelukast 10 mg tablet 1 tab PO DAILY albuterol sulfate 90 mcg/actuation HFA aerosol inhaler 2 puff PO Q6H PRN (Reason: wheezing) bupropion HCl 300 mg tablet extended release 24 hr 1 tab PO DAILY acetaminophen [Tylenol Extra Strength] 500 mg tablet 1,000 mg PO QID PRN (Reason: fever or pain) Qty: 14 0RF oxycodone 5 mg tablet 5 mg PO BID PRN (Reason: pain) Qty: 10 0RF tramadol 50 mg tablet 50 mg PO Q8H PRN (Reason: pain) Qty: 7 0RF eszopiclone [Lunesta] 1 mg tablet 1 mg PO BEDTIME 30 Days Qty: 30 5RF Referrals: Mann Dudley MD [Primary Care Provider] - Terrence Santana [Physician] - Interventions: ED Discharge Assessment Last Done: 02/26/24 11:50 Discharge Date/Time: 02/26/24 11:50 Print Language: [place]ralt[place]
[2024-02-26] MEDS: diphenhydrAMINE HCL 25 MG CAPSULE 50 MG PO (11:20)
[2024-02-26] MEDS: predniSONE 20 MG TABLET 40 MG PO (11:20)
--- NOTE | 2024-02-26 11:49 | PC.NURSE ---
visual acuity was performed, pt medicated per order pt to discharge home with scripts
[2024-02-26 11:50] VITALS: BP 128/83; PULSE 72; RESP 16; TEMP 36.8; O2SAT 97
== END 2024-02-26 11:50 | disposition home or self-care (01) ==
PROVIDERS: Emergency Provider Emergency Medicine; PCP Family Medicine
DX: H10.13 Acute atopic conjunctivitis, bilateral (principal)
CPT/HCPCS: 99282; 99283

== ENCOUNTER 2024-03-29 15:13 | Outpatient (AMB) | payer MEDICARE, MEDICAID, SELFPAY ==
--- NOTE | 2024-03-29 15:25 | MHC.OFFVIS ---
Vital Signs 03/29/24 15:30 Height 5 ft 3 in Weight 198 lb 2 oz BMI 35.1 BP 142/90 H Blood Pressure Location Lt brachial Position Sitting Respiration 16 Pulse 80 Pulse Source Pulse Oximeter Pulse Oximetry (%) 94 Oxygen Delivery Method Room Air Intake Visit Reasons: Discuss Replacement Controller for SCS Intake Note: Patient comes in to discuss replacement for SCS controller. Reports pain 6/10. Allergies apple [APPLE] Allergy (Severe, Verified 03/29/24 15:30) ANAPHYLAXIS morphine [MORPHINE] Allergy (Severe, Verified 03/29/24 15:30) RASH naproxen [From NAPROSYN] Allergy (Severe, Verified 03/29/24 15:30) ANAPHYLAXIS shellfish derived [SHELLFISH DERIVED] Allergy (Severe, Verified 03/29/24 15:30) RASH green apples Allergy (Severe, Uncoded 05/25/21 13:12) Anaphylaxis seafood Allergy (Unknown, Uncoded 05/25/21 13:12) Rash HPI Comments Details: Bivian? is here? for the follow-up after implant of spinal cord stimulator [employer].? She reported very good results until she recently lost the SCS control. She needs to contact [employer] sales representative aircraft Mr. Perla and the company we will replace the device for her. It is not clear where the it will be done with no charge, she might need to pay for it or at least contributes some of the co-pay. If any prescription needs to be sign the company needs to send me the form of the prescription and I will sign it and fax it back to the company. Prior: Very good results of [employer] SCS implant in the thoracic position. We have previously seen her multiple times for a lumbar radiculopathy and SI joint pain. She received two ESIs at L5/S1, in 12/2017 and again in 07/2018. This relieved her radiating leg pain significantly. She also had a left SI joint injection in 09/2018. She did have some ongoing SIJ pain, however she was improving slowly. MRI of the lumbar spine was reassuring, with mild pathology on the right, whereas her symptoms were on the left. She was advised gradual increase with exercise while performing her HEP. ?? ? Despite HEP her condition worsened back in beginning of 2019. She had failed prior treatment with PT, chiropractic treatment, SI belt, and multiple medications. ? She had very successful diagnostic sacroiliac joint innervation injection, reporting 100% pain relief for 5-6 hours? After the injection.? However when we applied radiofrequency ablation of sacroiliac joint she reported no pain relief whatsoever [facility] Medical History Anxiety GERD (gastroesophageal reflux disease) Anemia Hx of headache Panic attacks Depression Chronic back pain Asthma Chronic pain syndrome Sacroiliitis Lumbar radiculopathy, chronic Surgical History History of toe surgery Hx of cholecystectomy Hx of tubal ligation Hx of section Social History Alcohol intake: current Alcohol intake frequency: 0-2 drinks per day Comment: medicated with Oxycodone as per order Patient Tobacco Use Status: Former Tobacco user Substance Use Type: Marijuana Review of Systems Const All systems reviewed & are unremarkable except as noted in HPI and below Physical Exam Vital Signs: Last Vital Signs Pulse 80 03/29/24 15:30 Resp 16 03/29/24 15:30 BP 142/90 H 03/29/24 15:30 Pulse Ox 94 03/29/24 15:30 Oxygen Delivery Method Room Air 03/29/24 15:30 BMI result Body Mass Index 35.1 Vital signs stable, afebrile Const General: cooperative, healthy appearing, comfortable and no acute distress Orientation/consciousness: patient oriented x3 Limitations: no limitations HEENT Head: Yes normal to inspection, Yes No palpable skull fracture present, Yes normocephalic and Yes atraumatic Ears: hearing grossly normal bilaterally, external ears normal, TM's normal bilaterally, EAC's normal, mastoids normal and no periauricular adenopathy Eyes Other: + noted periorbital swelling, left greater than right. no overlying cellulitic changes. chemosis noted to left conjunctiva. Injected conjunctiva bilaterally. No obvious foreign body or corneal abrasion. On tetracaine/fluorescein examination, no reuptake to indicate abrasion or foreign body. No hyphema. No enophthalmos or exophthalmos. EOMs intact without pain or entrapment. + IOP OD 22, IOP OS 23. Uncorrected VA OD 20/50, VA OS 20/70, bilateral 20/50 Pupils: Equal, round and reactive pupils present Neuro General: patient oriented x3 Cranial nerves: Yes Equal, round and reactive pupils present Assessment & Plan Assessment & Plan (1) Lumbar radiculopathy, chronic: Code(s): M54.16 - Radiculopathy, lumbar region Category: Medical Plan: Doing okay after implantation of SCS [employer]. She lost the SCS control device. She needs to contact [employer] sales representative aircraft to replace the device. (2) Sacroiliitis: Code(s): M46.1 - Sacroiliitis, not elsewhere classified Category: Medical (3) Chronic pain syndrome: Comment: Seen and Rx by Dr Crane Code(s): G89.4 - Chronic pain syndrome Category: Medical Plan No new appointment at this time. If there is a need to sign the prescription for the SCS control device I will do so upon the receiving of the script template. Coding Level of Care Code Est Pt Level 3 (73630) Diagnoses Lumbar radiculopathy, chronic M54.16 Sacroiliitis M46.1 Chronic pain syndrome G89.4
[2024-03-29 15:30] VITALS: BP 142/90; PULSE 80; RESP 16; O2SAT 94; BMI 35.1
== END 2024-03-29 15:39 | disposition home or self-care (01) ==
PROVIDERS: PCP Family Medicine; Visit Provider Anesthesiology
DX: M54.16 Radiculopathy, lumbar region (principal); M46.1 Sacroiliitis, not elsewhere classified; G89.4 Chronic pain syndrome
CPT/HCPCS: 99213

== ENCOUNTER → 2024-03-29 15:13 | Outpatient (BNVA) | payer MEDICARE, MEDICAID, SELFPAY | PROVIDERS: PCP Family Medicine; Visit Provider Anesthesiology | DX: M54.16 Radiculopathy, lumbar region (principal); M46.1 Sacroiliitis, not elsewhere classified; G89.4 Chronic pain syndrome | CPT/HCPCS: 99212 ==

== ENCOUNTER 2024-06-16 13:26 | Emergency (ER) | payer MEDICARE, MEDICAID, SELFPAY ==
--- NOTE | 2024-06-16 | ECG_ITS ---
Test Reason : ABD PAIN Blood Pressure : / mmHG Vent. Rate : 051 BPM Atrial Rate : 051 BPM P-R Int : 148 ms QRS Dur : 096 ms QT Int : 498 ms P-R-T Axes : 047 037 036 degrees QTc Int : 458 ms Sinus bradycardia Otherwise normal ECG When compared with ECG of 04-APR-2019 09:48, Nonspecific T wave abnormality now evident in Anterior leads Referred By: José Luis Nguyen Electronically Signed By:RAYMOND OLMOS MD
--- NOTE | ~2024-06-16 | CT_ITS ---
EXAMINATION: CT ABDOMEN AND PELVIS WITHOUT CONTRAST CLINICAL INFORMATION: Upper abdominal pain with diarrhea COMPARISON: CT abdomen and pelvis 10/29/2015. TECHNIQUE: Multidetector volumetric imaging was performed from the superior aspect of the liver through the pubic symphysis. Sagittal and coronal reformatted images were obtained on the technologist's workstation. This CT examination was performed using dose optimization techniques as appropriate, variously including the following: *Automated exposure control *Adjustment of mA and/or kV according to patient size (this includes techniques or standardized protocols for targeted exams where dose is matched to indication/reason for exam; i.e. extremities or head) *Use of iterative reconstruction technique DLP: 690 mGy-cm FINDINGS: LUNG BASES: The lung bases are clear. There is a small hiatal hernia. Small pericardial effusion seen. LIVER, GALLBLADDER, AND BILIARY TREE: The liver is normal in size, shape, and attenuation. No focal hepatic lesion or biliary ductal dilatation is present. The gallbladder has been surgically removed. PANCREAS: Unremarkable. SPLEEN: Unremarkable. ADRENAL GLANDS: Unremarkable. KIDNEYS AND URETERS: The kidneys are normal in size, shape, and attenuation. There is a 1.2 cm hypodensity upper pole right kidney, likely cyst. No radiopaque calculi or hydronephrosis seen. BLADDER: Unremarkable. GASTROINTESTINAL TRACT: There is a gastrics reduction surgical changes. The small bowel loops are normal caliber. Appendix is not visualized. No free air or free fluid seen. ABDOMINAL WALL: No significant hernia is appreciated. LYMPH NODES: Normal. VASCULAR: Unremarkable. PELVIC VISCERA: Unremarkable. OSSEOUS STRUCTURES: No aggressive lytic or sclerotic process. There are mild degenerative disc changes and vacuum disc phenomena L5-S1 disc level. There are posterior epidural electrodes at T8-[address]/CT abdomen pelvis wo IV con IMPRESSION: 1. No acute intra-abdominal process seen. 2. Small hiatal hernia. Mild pericardial effusion. 3. Status post gastric reduction surgical changes. 4. Status post cholecystectomy. 5. Right renal cyst. Fleischner guidelines were followed. Electronically signed by: Christopher Crowder MD 06/16/2024 10:19 PM EDT
[2024-06-16 14:17] VITALS: BP 137/88; PULSE 69; RESP 18; TEMP 36.1; O2SAT 100; BMI 31.0
--- NOTE | 2024-06-16 14:53 | ED.GENADULT ---
HPI - General Adult General Chief complaint: Abdominal Pain Stated complaint: abd pain-diarrhea Time Seen by Provider: 06/16/24 19:23 Source: patient Mode of arrival: ambulatory Limitations: no limitations History of Present Illness ED Provider: rosario BLOUNT narrative: Patient is status post gastric sleeve surgery with chronic frequent abdominal pain comes here for 1 month of pain in upper abdomen associated with diarrhea whenever she eats something within half an hours she gets the diarrhea no fever no chills Related Data Home Medications ?Medication ?Instructions ?Recorded ?Confirmed albuterol sulfate 90 mcg/actuation 2 puff PO Q6H PRN wheezing 12/26/20 05/25/21 aerosol inhaler amlodipine 5 mg tablet 1 tab PO DAILY 12/26/20 05/25/21 bupropion HCl 300 mg 24 hr tablet, 1 tab PO DAILY 12/26/20 05/25/21 extended release clonidine HCl 0.1 mg tablet 1 tab PO BID 12/26/20 05/25/21 gabapentin 300 mg capsule PO 12/26/20 montelukast 10 mg tablet 1 tab PO DAILY 12/26/20 05/25/21 olanzapine 10 mg tablet 1 tab PO BEDTIME 12/26/20 05/25/21 omeprazole 20 mg capsule,delayed 1 cap PO BID 12/26/20 05/25/21 release oxcarbazepine 600 mg tablet 1 tab PO BID 12/26/20 05/25/21 salmeterol 50 mcg/dose blister 1 puff inhalation BID 12/26/20 05/25/21 powder for inhalation (Serevent Diskus) fluticasone propionate 220 2 puff PO BID 05/25/21 05/25/21 mcg/actuation HFA aerosol inhaler (Flovent HFA) Previous Rx's ?Medication ?Instructions ?Recorded tizanidine 4 mg tablet 4 mg PO TID PRN muscle spasticity 10/10/20 30 days #90 tabs acetaminophen 500 mg tablet 1,000 mg (2 x 500 mg) PO QID PRN 04/24/21 (Tylenol Extra Strength) fever or pain #14 tabs oxycodone 5 mg tablet 5 mg PO BID PRN pain #10 tabs 04/24/21 cephalexin 500 mg tablet 1,000 mg (2 x 500 mg) PO Q8H 14 06/01/21 days #84 tabs eszopiclone 1 mg tablet (Lunesta) 1 mg PO BEDTIME 30 days #30 tabs 06/07/21 suvorexant 5 mg tablet (Belsomra) 5 mg PO BEDTIME 30 days #30 tabs 06/11/21 tramadol 50 mg tablet 50 mg PO Q8H PRN pain #7 tabs 06/30/21 cetirizine 0.24 % eye drops in a 1 drp ophthalmic (eye) BID 1 week 02/26/24 dropperette #30 ea prednisone 20 mg tablet 40 mg (2 x 20 mg) PO DAILY 4 days 02/26/24 #8 tabs dicyclomine 20 mg tablet 20 mg PO TID #20 tabs 06/16/24 sucralfate 1 gram tablet 1 g PO TID #90 tabs 06/16/24 Allergies Allergy/AdvReac Type Severity Reaction Status Date / Time apple [APPLE] Allergy Severe ANAPHYLAXIS Verified 06/16/24 14:20 morphine [MORPHINE] Allergy Severe RASH Verified 06/16/24 14:20 naproxen [From NAPROSYN] Allergy Severe ANAPHYLAXIS Verified 06/16/24 14:20 shellfish derived Allergy Severe RASH Verified 06/16/24 14:20 [SHELLFISH DERIVED] green apples Allergy Severe Anaphylaxis Uncoded 05/25/21 13:12 seafood Allergy Unknown Rash Uncoded 05/25/21 13:12 Review of Systems Review of Systems: Yes all other systems are reviewed and are negative PMFSH Past Medical History Medical History Anxiety GERD (gastroesophageal reflux disease) Anemia Hx of headache Panic attacks Depression Chronic back pain Asthma Chronic pain syndrome Sacroiliitis Lumbar radiculopathy, chronic Surgical History History of toe surgery Hx of cholecystectomy Hx of tubal ligation Hx of section Social History Social History Alcohol intake: current Alcohol intake frequency: holidays/special occasions only Comment: medicated with Oxycodone as per order Patient Tobacco Use Status: Former Tobacco user Smoked in Last 30 Days: No Use of substances other than those prescribed or required for medical reasons: Yes Substance Use Type: Marijuana Substance Use Frequency: Chronic Longstanding Advance Directives: No Advance Directives Information Provided: No Patient : No Physical Exam ED Vital Signs: Vital Signs - 24 hr 06/16/24 14:17 06/16/24 19:17 06/16/24 22:41 Temperature 96.9 F 97.6 F 97.6 F Pulse Rate 69 53 53 Respiratory Rate 18 18 18 Blood Pressure 137/88 149/91 H 149/91 H Pulse Oximetry 100 99 99 Oxygen Delivery Method Room Air Room Air Room Air BMI result Body Mass Index 31.0 Appearance: Alert. Oriented X3. No acute distress. Eyes: PERRLA, No Nystagmus ENT: Pharynx normal. Oral Mucosa moist Neck: Normal inspection. Neck supple. CVS: Normal heart rate and rhythm. Pulses normal. Respiratory: No respiratory distress. Equal air entry bilateral, no wheezing/rales/rhonchi Abdomen: Soft and tenderness epigastric area no rebound tenderness or guarding Bowel sounds are present, no mass palpable, no CVA tenderness Skin: Skin warm and dry. Normal skin color. Normal skin turgor. Extremities: No lower extremity edema. No calf tenderness Neuro: Oriented X 3. No motor deficit. Course Course Course Narrative: RME; [employer] by AUDREY Ling. 54-year-old female presents ED for 1 month of intermittent abdominal pain with diarrhea. Patient states taking Imodium with little relief. Patient denies any new antibiotics, recent long travel recent admission. Labs ordered. Abdomen benign. Medications Administered Discontinued Medications Generic Name Dose Route Start Last Admin Trade Name Freq PRN Reason Stop Dose Admin Sodium Chloride 1,000 mls @ 999 mls/hr 06/16/24 19:39 06/16/24 20:55 Ns IV 06/16/24 20:39 Infused .Q1H1M ONE Infusion Potassium Chloride 10 meq in 100 mls @ 100 mls/hr 06/16/24 19:39 06/16/24 20:50 Potassium Chloride/H20 IV 06/16/24 20:38 Infused ONCE ONE Infusion Ketorolac Tromethamine 30 mg 06/16/24 19:41 06/16/24 19:55 Ketorolac Tromethamine 30 Mg/Ml Vial IVPUSH 06/16/24 19:42 30 mg ONCE ONE Administration Ondansetron HCl 4 mg 06/16/24 19:41 06/16/24 19:55 Ondansetron Hcl 4 Mg/2 Ml Vial IVPUSH 06/16/24 19:42 4 mg ONCE ONE Administration Potassium Chloride 20 meq 06/16/24 19:39 06/16/24 19:55 Potassium Chloride Er 20 Meq Tab.Er.Prt PO 06/16/24 19:40 20 meq ONCE ONE Administration Medical Decision Making Medical Decision Making [facility] Narrative: Patient with nonspecific pain workup showed gastritis rest of the CT scan is negative the patient has IBS prescribed dicyclomine advised to continue omeprazole will give sucralfate Differential Diagnosis Differential Diagnoses: The differential diagnosis associated with the presentation includes IBS/gastritis/diverticulitis/pancreatitis Lab Data [facility] Lab Attestation statement: I reviewed the patient's lab results. 06/16/24 15:36 06/16/24 15:36 Labs: Lab Results 06/16/24 06/16/24 Range/Units 15:36 20:55 WBC 9.2 (4.8-10.8) X10*3/uL RBC 3.66 L (4.20-5.50) X10*6/uL Hgb 12.7 (12.0-16.0) g/dl Hct 36.2 L (37.0-47.0) % MCV 98.9 H (80.0-98.0) fL MCH 34.7 H (27.0-33.0) pg MCHC 35.1 H (31.0-35.0) g/dl RDW 14.2 (11.0-16.0) % Plt Count 192 (160-400) X10*3/uL MPV 12.6 H (9.4-12.3) fL Immature Gran % (Auto) 0.4 (0.0-0.4) % Neut % (Auto) 62.9 (45-73) % Lymph % (Auto) 27.7 (20-40) % [place] % (Auto) 6.4 (2-11) % Eos % (Auto) 2.3 (0-4) % Baso % (Auto) 0.3 (0-2) % Lymph # (Auto) 2.5 (1.2-4.9) X10*3/uL [place] # (Auto) 0.6 (0.1-1.2) X10*3/uL Eos # (Auto) 0.2 (0.0-0.4) X10*3/uL Baso # (Auto) 0.0 (0.0-0.2) X10*3/uL Abs Immat Gran (auto) 0.04 H (0.00-0.03) X10*3/uL Absolute Neuts (auto) 5.8 (2.0-8.3) x10*3/uL Absolute Nucleated RBC 0.000 (0.0-0.012) X10*3/uL Nucleated RBC % (auto) 0.0 (0.0-0.2) /100WBC Sodium 141 (135-145) mmol/L Potassium 3.0 L (3.3-5.1) mmol/L Chloride 109 H (96-108) mmol/L Carbon Dioxide 25 (22-29) mmol/L Anion Gap 10 L (12-20) BUN 10 (9-16) mg/dL Creatinine 0.70 (0.5-1.4) mg/dL Estim Creat Clear Calc 92.7 Estimated GFR > 60 Random Glucose 85 (60-115) mg/dL Calcium 8.6 (8.4-10.2) mg/dL Total Bilirubin 0.4 (0.0-1.0) mg/dL AST 19 (5-31) U/L ALT 14 (0-31) U/L Alkaline Phosphatase 120 H (39-117) U/L Total Protein 7.2 (6.5-8.0) g/dL Albumin 3.9 (3.5-5.0) g/dL Lipase 14 (8-78) U/L Urine Color Yellow Urine Appearance Clear Urine pH 7.0 (5.0-9.0) Ur Specific [place] 1.015 (1.005-1.025) Urine Protein Negative (Neg-Trace) mg/dL Urine Glucose (UA) Negative (Negative) mg/dL Urine Ketones 40 (Negative) mg/dL Urine Blood Negative (Negative) Urine Nitrite Negative (Negative) Ur Leukocyte Esterase Small (1+) H (Negative) Urine RBC 0-2 (0-2) /HPF Urine WBC 0-5 (0-5) /HPF Ur Squamous Epith Cells 3-5 (0-2) /HPF Urine Bacteria None Seen (None Seen) Hyaline Casts 0-2 (0-2) /LPF Influenza Type A (PCR) NEGATIVE (Negative) Influenza Type B (PCR) NEGATIVE (Negative) RSV RNA Qual (PCR) NEGATIVE (Negative) SARS-CoV-2 RNA (RT-PCR) NEGATIVE (Negative) Independent Interpretation I performed an independent interpretation of an: CT Scan Radiology Impression Discussion of test interpretation with radiology: I have reviewed the radiologist's reading. Radiologist Impression: [address] [address] [address] Scan Report Signed Patient: Don Box MR#: [id number] : 1970 Acct:[id number] Age/Sex: 54 / F ADM Date: 06/16/24 Loc: HO.ED Attending Dr: Ordering Physician: José Luis Nguyen MD Date of Service: 06/16/24 Procedure(s): CT abdomen pelvis wo IV con Accession Number(s): [id number] cc: Mann Dudley MD; José Luis Nguyen MD~ EXAMINATION: CT ABDOMEN AND PELVIS WITHOUT CONTRAST CLINICAL INFORMATION: Upper abdominal pain with diarrhea COMPARISON: CT abdomen and pelvis 10/29/2015. TECHNIQUE: Multidetector volumetric imaging was performed from the superior aspect of the liver through the pubic symphysis. Sagittal and coronal reformatted images were obtained on the technologist's workstation. This CT examination was performed using dose optimization techniques as appropriate, variously including the following: *Automated exposure control *Adjustment of mA and/or kV according to patient size (this includes techniques or standardized protocols for targeted exams where dose is matched to indication/reason for exam; i.e. extremities or head) *Use of iterative reconstruction technique DLP: 690 mGy-cm FINDINGS: LUNG BASES: The lung bases are clear. There is a small hiatal hernia. Small pericardial effusion seen. LIVER, GALLBLADDER, AND BILIARY TREE: The liver is normal in size, shape, and attenuation. No focal hepatic lesion or biliary ductal dilatation is present. The gallbladder has been surgically removed. PANCREAS: Unremarkable. SPLEEN: Unremarkable. ADRENAL GLANDS: Unremarkable. KIDNEYS AND URETERS: The kidneys are normal in size, shape, and attenuation. There is a 1.2 cm hypodensity upper pole right kidney, likely cyst. No radiopaque calculi or hydronephrosis seen. BLADDER: Unremarkable. GASTROINTESTINAL TRACT: There is a gastrics reduction surgical changes. The small bowel loops are normal caliber. Appendix is not visualized. No free air or free fluid seen. ABDOMINAL WALL: No significant hernia is appreciated. LYMPH NODES: Normal. VASCULAR: Unremarkable. PELVIC VISCERA: Unremarkable. OSSEOUS STRUCTURES: No aggressive lytic or sclerotic process. There are mild degenerative disc changes and vacuum disc phenomena L5-S1 disc level. There are posterior epidural electrodes at T8-[address]/CT abdomen pelvis wo IV con IMPRESSION: 1. No acute intra-abdominal process seen. 2. Small hiatal hernia. Mild pericardial effusion. 3. Status post gastric reduction surgical changes. 4. Status post cholecystectomy. 5. Right renal cyst. Fleischner guidelines were followed. Electronically signed by: Christopher Crowder MD 06/16/2024 10:19 PM EDT Discharge Plan Discharge Clinical Impression: Chronic gastritis, Irritable bowel syndrome Patient Disposition: Home, Self-Care Instructions: Gastritis (ED), Irritable Bowel Syndrome (ED) Additional Instructions: Avoid fried food Continue omeprazole Take sucralfate 1 tablet 3 times a day before meals Dicyclomine 1 tablet 3 times a day as needed for cramps Follow with GI Prescriptions: New sucralfate 1 gram tablet 1 g PO TID Qty: 90 0RF dicyclomine 20 mg tablet 20 mg PO TID Qty: 20 0RF No Action tizanidine 4 mg tablet 4 mg PO TID PRN (Reason: muscle spasticity) 30 Days Qty: 90 11RF cephalexin 500 mg tablet 1,000 mg PO Q8H 14 Days Qty: 84 1RF Rx Instructions: Take OTC probiotics 25 billion cultures in between the doses of the antibiotics with food Belsomra 5 mg tablet 5 mg PO BEDTIME 30 Days Qty: 30 0RF Flovent HFA 220 mcg/actuation HFA aerosol inhaler 2 puff PO BID clonidine HCl 0.1 mg tablet 1 tab PO BID olanzapine 10 mg tablet 1 tab PO BEDTIME amlodipine 5 mg tablet 1 tab PO DAILY Serevent Diskus 50 mcg/dose blister with device 1 puff inhalation BID gabapentin 300 mg capsule PO omeprazole 20 mg capsule,delayed release(DR/EC) 1 cap PO BID oxcarbazepine 600 mg tablet 1 tab PO BID montelukast 10 mg tablet 1 tab PO DAILY albuterol sulfate 90 mcg/actuation HFA aerosol inhaler 2 puff PO Q6H PRN (Reason: wheezing) bupropion HCl 300 mg tablet extended release 24 hr 1 tab PO DAILY acetaminophen [Tylenol Extra Strength] 500 mg tablet 1,000 mg PO QID PRN (Reason: fever or pain) Qty: 14 0RF oxycodone 5 mg tablet 5 mg PO BID PRN (Reason: pain) Qty: 10 0RF tramadol 50 mg tablet 50 mg PO Q8H PRN (Reason: pain) Qty: 7 0RF cetirizine 0.24 % dropperette 1 drp ophthalmic (eye) BID 7 Days Qty: 30 0RF prednisone 20 mg tablet 40 mg PO DAILY 4 Days Qty: 8 0RF eszopiclone [Lunesta] 1 mg tablet 1 mg PO BEDTIME 30 Days Qty: 30 5RF Referrals: Remington Perdomo MD [Physician] - Interventions: ED Discharge Assessment Last Done: 06/16/24 22:41 Discharge Date/Time: 06/16/24 22:42 Print Language: Croatian
[2024-06-16 15:41] LABS: MANUAL DIFF FLAG NO
[2024-06-16 15:46] LABS: Basophils Percent Auto 0.3 % (0-2); Eosinophils Absolute Auto 0.2 X10*3/uL (0.0-0.4); Eosinophils Percent Auto 2.3 % (0-4); Hematocrit 36.2 % (37.0-47.0); Hemoglobin 12.7 g/dl (12.0-16.0); Imm Gran Abs Auto 0.04 X10*3/uL (0.00-0.03); Imm Gran Pct Auto 0.4 % (0.0-0.4); Lymphocytes Absolute Auto 2.5 X10*3/uL (1.2-4.9); Lymphocytes Percent Auto 27.7 % (20-40); Mean Corpuscular HGB Conc 35.1 g/dl (31.0-35.0); Mean Corpuscular Hemoglobin 34.7 pg (27.0-33.0); Mean Corpuscular Volume 98.9 fL (80.0-98.0); Mean Platelet Volume 12.6 fL (9.4-12.3); Monocytes Absolute Auto 0.6 X10*3/uL (0.1-1.2); Monocytes Percent Auto 6.4 % (2-11); Neutrophils Absolute Auto 5.8 x10*3/uL (2.0-8.3); Neutrophils Percent Auto 62.9 % (45-73); Platelet Count 192 X10*3/uL (160-400); Red Blood Count 3.66 X10*6/uL (4.20-5.50); Red Cell Distribution Width 14.2 % (11.0-16.0); White Blood Count 9.2 X10*3/uL (4.8-10.8)
[2024-06-16 16:01] LABS: Alanine Aminotransferase 14 U/L (0-31); Albumin Level 3.9 g/dL (3.5-5.0); Alkaline Phosphatase 120 U/L (39-117); Anion Gap 10 (12-20); Aspartate Amino Transferase 19 U/L (5-31); Bilirubin Total 0.4 mg/dL (0.0-1.0); Blood Urea Nitrogen 10 mg/dL (9-16); Calcium 8.6 mg/dL (8.4-10.2); Carbon Dioxide 25 mmol/L (22-29); Chloride 109 mmol/L (96-108); Creatinine Clr Calc Pharmacy 92.7; Estimated Glomerular Filt Rate > 60; Glucose Random 85 mg/dL (60-115); Lipase 14 U/L (8-78); Sodium 141 mmol/L (135-145); Total Protein 7.2 g/dL (6.5-8.0)
[2024-06-16 16:18] LABS: Influenza A PCR NEGATIVE (Negative); Influenza B PCR NEGATIVE (Negative); Resp Syncy Virus RNA Qual PCR NEGATIVE (Negative); SARS COV2 PCR INHOUSE NEGATIVE (Negative)
[2024-06-16 19:17] VITALS: BP 149/91; PULSE 53; RESP 18; TEMP 36.4; O2SAT 99
[2024-06-16] MEDS: Ketorolac Tromethamine 30 MG/ML VIAL IVPUSH (19:55)
[2024-06-16] MEDS: ondansetron HCL 4 MG/2 ML VIAL IVPUSH (19:55)
[2024-06-16] MEDS: Potassium Chloride ER 20 MEQ TAB.ER.PRT PO (19:55)
[2024-06-16] MEDS: 0.9 % Sodium Chloride 1,000 ML 999 ML IV (19:55)
[2024-06-16] MEDS: Potassium Chloride/H20 10 MEQ/100 ML PIGGYBACK 100 MEQ IV (19:56)
[2024-06-16 21:03] LABS: Appearance Urine Clear; Color Urine Yellow; Glucose Urine UA Negative (Negative); Leukocyte Esterase Urine Small (1+) (Negative); Nitrite Urine Negative (Negative); Specific Gravity - Urine 1.015 (1.005-1.025); UMIC TRIGGER UACC YES; Urine Blood Negative (Negative); Urine Ketones 40 mg/dL (Negative); Urine Protein Negative (Neg-Trace)
[2024-06-16 21:23] LABS: Bacteria Urine None Seen (None Seen); Hyaline Casts Urine 0-2 /LPF (0-2); RBC Urine 0-2 /HPF (0-2); UACC Culture Trigger YES; WBC Urine 0-5 /HPF (0-5)
[2024-06-16 22:41] VITALS: BP 149/91; PULSE 53; RESP 18; TEMP 36.4; O2SAT 99
== END 2024-06-16 22:42 | disposition home or self-care (01) ==
PROVIDERS: Physician Assistant; Emergency Provider Internal Medicine; PCP Family Medicine
DX: K29.70 Gastritis, unspecified, without bleeding (principal); K58.9 Irritable bowel syndrome, unspecified; R10.10 Upper abdominal pain, unspecified; Z03.818 Encounter for observation for suspected exposure to other biological agents ruled out; J45.909 Unspecified asthma, uncomplicated; D64.9 Anemia, unspecified; K21.9 Gastro-esophageal reflux disease without esophagitis; Z79.899 Other long term (current) drug therapy
CPT/HCPCS: 0241U; 74176; 80053; 81001; 81003; 83690; 85025; 87086; 93005; 96361; 96374; 96375; 99284; 99285; J1885; J2405; J3480

== ENCOUNTER → 2024-06-16 19:25 | Outpatient (BNV) | payer MEDICARE, MEDICAID, SELFPAY | PROVIDERS: Emergency Provider Internal Medicine; PCP Family Medicine; Visit Provider Internal Medicine Cardiovascular Disease | DX: R00.1 Bradycardia, unspecified (principal) | CPT/HCPCS: 93010 ==

== ENCOUNTER 2024-08-16 13:34 | Outpatient (AMB) | payer MEDICARE, MEDICAID, SELFPAY ==
--- NOTE | 2024-08-16 13:36 | MHC.OFFVIS ---
Vital Signs 08/16/24 13:37 Height 5 ft 3 in Weight 193 lb 1.999 oz BMI 34.2 BP 126/86 Blood Pressure Location Rt brachial Position Sitting Pulse 76 Pulse Source Pulse Oximeter Pulse Oximetry (%) 98 Oxygen Delivery Method Room Air Intake Visit Reasons: ED f/u Chronic Gastritis & IBS Intake Note: NEW PATIENT Brandeeian presents in office today for a scheduled initial assessment post ED admit. Prior hx of colo/egd? Pt has attempted colo prior without positive result. Pt instead had cologuard via [facility] a few months ago. Pt has also had EGD but not for many years. Meds reviewed? Y Allergies reviewed? Y Any significant concerns or questions? Diarrhea, GI upset, pt has been attempting to avoid trigger foods without much success. Pharmacy verified? [facility] Required: No Accompanied by: Daughter Allergies apple [APPLE] Allergy (Severe, Verified 08/16/24 13:38) ANAPHYLAXIS morphine [MORPHINE] Allergy (Severe, Verified 08/16/24 13:38) RASH naproxen [From NAPROSYN] Allergy (Severe, Verified 08/16/24 13:38) ANAPHYLAXIS shellfish derived [SHELLFISH DERIVED] Allergy (Severe, Verified 08/16/24 13:38) RASH green apples Allergy (Severe, Uncoded 05/25/21 13:12) Anaphylaxis seafood Allergy (Unknown, Uncoded 05/25/21 13:12) Rash HPI HPI ED f/u Chronic Gastritis & IBS: Details: 54-year-old female with past medical history of asthma, anemia, panic attacks, depression, back pain, status post gastric sleeve is here today for initial consultation. Patient was seen in the ER back in June for complaining of abdominal pain. Patient has had multiple surgeries that include cholecystectomy, tubal ligation, gastric sleeve, . Patient has been experiencing postprandial abdominal bloating and epigastric pain. Patient also has acid reflux currently not on any PPIs, treat self at home [id number] medications. Patient denies any nausea or vomiting. Denies any dyspepsia, dysphagia or odynophagia. Patient denies melena, hematochezia, unintentional weight loss or ribbon like stools. [facility] Medical History Anxiety GERD (gastroesophageal reflux disease) Anemia Hx of headache Panic attacks Depression Chronic back pain Asthma Chronic pain syndrome Sacroiliitis Lumbar radiculopathy, chronic Surgical History History of toe surgery Hx of cholecystectomy Hx of tubal ligation Hx of section Social History Alcohol intake: current Alcohol intake frequency: holidays/special occasions only Comment: medicated with Oxycodone as per order Patient Tobacco Use Status: Former Tobacco user Substance Use Type: Marijuana Review of Systems Const Denies weight gain and Denies weight loss ENT Reports no additional complaints, Denies dysphagia and Denies odynophagia Card Reports no additional complaints Resp Reports no additional complaints GI Reports abdominal pain (The whole abdomen and left lower quadrant), Denies belching, Denies melena, Reports bloating, Denies change in bowel habits, Denies dysphagia, Denies excessive flatus, Denies dyspepsia, Reports heartburn, Denies diarrhea, Reports loose stools, Denies nausea, Denies odynophagia and Denies vomiting Reports no additional complaints Musc Reports no additional complaints Neuro Reports no additional complaints Psych Reports no additional complaints Endo Reports no additional complaints Physical Exam Vital Signs: Last Vital Signs Pulse 76 08/16/24 13:37 BP 126/86 08/16/24 13:37 Pulse Ox 98 08/16/24 13:37 Oxygen Delivery Method Room Air 08/16/24 13:37 BMI result Body Mass Index 34.2 Const General: healthy appearing and no acute distress Nutritional Appearance: obese Orientation/consciousness: patient oriented x3 Resp Effort & Inspection: normal respiratory effort, able to speak in complete sentences, no tracheal deviation and symmetric chest movement Auscultation: clear to auscultation bilaterally Cardio Rate: regular rate GI Other: Old scars from previous surgeries Inspection: No distended and Yes obesity Palpation (GI): Soft to palpation, not firm, nontender and No hepatosplenomegaly present Auscultation: normal bowel sounds General: Yes no CVA tenderness Back/Spine/Pelvis Back: no CVA tenderness Skin General skin exam: elasticity normal, turgor normal and dry skin Neuro General: patient oriented x3 Psych Appearance: grossly normal Mental Status: mental status grossly normal Results Reviewed Results Reviewed: CT SCAN OF ABDOMEN AND PELVIS 06/16/2024 (ED VISIT) IMPRESSION: 1. No acute intra-abdominal process seen. 2. Small hiatal hernia. Mild pericardial effusion. 3. Status post gastric reduction surgical changes. 4. Status post cholecystectomy. 5. Right renal cyst. Assessment & Plan Assessment & Plan (1) GERD (gastroesophageal reflux disease): Code(s): K21.9 - Gastro-esophageal reflux disease without esophagitis Qualifiers: Esophagitis presence: esophagitis presence not specified Qualified Code(s): K21.9 - Gastro-esophageal reflux disease without esophagitis (2) Postprandial epigastric pain: Code(s): R10.13 - Epigastric pain (3) Postprandial abdominal bloating: Code(s): R14.0 - Abdominal distension (gaseous) Plan Patient will stop taking dicyclomine as this is constipating her even more. Multiple surgeries in her abdomen that could cause adhesions, however no visible hernia seen on CT scan from her visit in the ER. Patient reports postprandial abdominal bloating, cramping throughout the abdomen and constipation. Patient reports that she is not moving her bowels completely, reports postprandial loose stools. Patient was encouraged to take fiber supplements with probiotics. Will try to get last colonoscopy results from [facility]. Will order upper GI with small-bowel to check for reflux. She does reports to have epigastric pain and reflux with almost anything that she eats. Will check vitamin-D, B12, folate. Will also check her thyroid panel. Script for pantoprazole will be sent to pharmacy. Avoid dietary triggers and late night snacking. Eating smaller meals and more often. FODMAP diet discussed with patient. List of food recommended as well as list of food to avoid given to patient. Patient will follow-up in 3 months, sooner on as needed basis. She is agreeable to this plan and verbalizes understanding of instructions. She was given the opportunity to ask questions and all questions answered. Thank you for allowing me to participate in her care Orders: Orders Vitamin D 25-OH (D2 and D3) Today E55.9 - Vitamin D deficiency, unspecified FL upper GI small bowel Today R13.10 - Dysphagia, unspecified Transglutaminase IgA Today R10.9 - Unspecified abdominal pain TSH reflex Free T4 Today K59.00 - Constipation, unspecified Vitamin B12 and Folate Today R19.7 - Diarrhea, unspecified Transglutaminase Ab IgG Today R10.9 - Unspecified abdominal pain Medications: New methylcellulose (laxative) (Citrucel) 500 mg PO DAILY 30 tabs 2RF K59.00 - Constipation, unspecified pantoprazole take one tablet half an hour before breakfast 40 mg PO DAILY 30 tabs 2RF K21.9 - Gastro-esophageal reflux disease without esophagitis Discontinued dicyclomine Discontinued Reason: Patient no longer taking 20 mg PO TID 20 tabs 0RF Coding Level of Care Code New Pt Level 4 (48508) Diagnoses Gastroesophageal reflux disease, unspecified whether esophagitis present K21.9 Esophagitis presence: esophagitis presence not specified Postprandial epigastric pain R10.13 Postprandial abdominal bloating R14.0 Time Spent (min) 45 Comment 30 minutes spent with patient and additional 15 minutes spent reviewing her records
[2024-08-16 13:37] VITALS: BP 126/86; PULSE 76; O2SAT 98; BMI 34.2
== END 2024-08-16 14:10 | disposition home or self-care (01) ==
LOC: HO.HGI 13:34
PROVIDERS: PCP Family Medicine; Visit Provider Nurse Practitioner Family
DX: K21.9 Gastro-esophageal reflux disease without esophagitis (principal); R10.13 Epigastric pain; R14.0 Abdominal distension (gaseous)
CPT/HCPCS: 99204

== ENCOUNTER 2024-08-16 13:34 | Outpatient (REF) | payer MEDICARE, MEDICAID, SELFPAY ==
[2024-08-16 17:35] LABS: TSH reflex Free T4 0.98 uIU/mL (0.32-4.0)
[2024-08-16 17:50] LABS: Folate 3.4 ng/mL (> or = 4.0); Vitamin B12 255 pg/mL (200-900)
[2024-08-17 20:39] LABS: Transglutaminase Ab IgG <1.0 U/mL; Transglutaminase IgA <1.0 U/mL
[2024-08-20 13:24] LABS: Vitamin D 25-OH, D2 <4 ng/mL; Vitamin D 25-OH, D3 11 ng/mL; Vitamin D 25-OH, Total 11 ng/mL (30-100)
== END 2024-08-16 13:35 | disposition home or self-care (01) ==
LOC: HO.LAB 13:34
PROVIDERS: PCP Family Medicine; Visit Provider Nurse Practitioner Family
DX: R19.7 Diarrhea, unspecified (principal); R10.9 Unspecified abdominal pain; E55.9 Vitamin D deficiency, unspecified; K59.00 Constipation, unspecified; K29.50 Unspecified chronic gastritis without bleeding
CPT/HCPCS: 36415; 82306; 82607; 82746; 84443; 86364; 99202

== ENCOUNTER 2024-09-21 07:26 | Outpatient (REF) | payer MEDICARE, MEDICAID, SELFPAY ==
--- NOTE | ~2024-09-21 | FL_ITS ---
EXAMINATION: XR FLUOROSCOPY UPPER GI WITH SMALL BOWEL SERIES CLINICAL INFORMATION: Dysphagia. Diarrhea. History of sleeve gastrectomy. COMPARISON: None TECHNIQUE: Fluoroscopic air contrast upper GI examination was performed utilizing standard techniques with thin and thick barium and effervescent granules. Numerous spot images were obtained. FINDINGS: Lateral cine images of the oropharynx and hypopharynx demonstrate normal swallow mechanism with normal epiglottic inversion and soft palate elevation. No tracheal penetration, glottic or subglottic aspiration identified. No nasopharyngeal reflux present. Hypopharyngeal structures appear normal without evidence of mass or diverticulum. There was no significant cricopharyngeal achalasia. Dual and single contrast images of the esophagus demonstrate normal caliber, contour, and mucosal pattern. No masses or ulcerations are seen. There is mild narrowing of the GE junction that likely represents achalasia. Esophageal peristalsis was normal. A moderate-sized type I hiatal hernia is present. Significant gastroesophageal reflux is seen up to the thoracic inlet. Dual contrast and single contrast images of the stomach demonstrate post surgical changes consistent with prior history of sleeve gastrectomy. Evaluation of the gastric mucosa is limited due to underdistention of stomach from poor tolerance of the effervescent granules. Contrast freely passed into the gastric antrum and duodenal bulb without delay. Single and air-contrast images of the duodenal bulb demonstrate no abnormality. The duodenal sweep has a normal appearance, course, and mucosal fold appearance. The imaged proximal jejunum has a normal fold pattern and caliber. SMALL BOWEL SERIES: Fence Rider view demonstrates a normal bowel gas pattern. Surgical clips are present in the upper quadrant. A staple line is present over the greater curvature of the stomach. A spinal stimulator overlies the left pelvis with the intrathecal wires terminating in the lower thoracic spinal canal. Sequential imaging of the jejunum and ileum have normal caliber, fold pattern, and appearance without evidence of mass, stricture, or abnormal dilatation. Spot imaging of the terminal ileum demonstrates no abnormality. No dilution of contrast noted through progression. Contrast was seen in the right colon after 30 minutes. FLUOROSCOPY TIME: 4 minutes 54 seconds Number of Spot Images: 17 Number of Cine: 11 DOSE AREA PRODUCT: 3242 uGy-m2 (microgray-meter squared) FL/FL upper GI small bowel IMPRESSION: 1. Mild narrowing of the GE junction that likely represents achalasia. A benign short segment stricture cannot be ruled out. 2. Moderate-sized type I hiatal hernia with severe gastroesophageal reflux. 3. Postoperative changes consistent with prior history of sleeve gastrectomy. Limited evaluation of the gastric mucosa due to underdistention of the stomach from poor tolerance of the effervescent granules. 4. Rapid transit of the barium column, with the right colon opacified in 30 minutes. Etiology is unclear. 5. Status post cholecystectomy. 6. Left-sided spinal stimulator with intrathecal wires terminating in the lower thoracic canal. This procedure was performed by Eris Smith PA-C, and supervised by Dr. Fuchs Electronically signed by: Rojelio Fuchs MD 09/22/2024 01:21 PM [facility]
== END 2024-09-21 07:27 | disposition home or self-care (01) ==
LOC: HO.XRAY 07:26
PROVIDERS: PCP Family Medicine; Visit Provider Nurse Practitioner Family
DX: R13.10 Dysphagia, unspecified (principal)
CPT/HCPCS: 74240; 74248

== ENCOUNTER → 2024-09-21 07:28 | Outpatient (BNV) | payer MEDICARE, MEDICAID, SELFPAY | PROVIDERS: PCP Family Medicine; Visit Provider Physician Assistant Surgical | DX: R13.10 Dysphagia, unspecified (principal) | CPT/HCPCS: 74246; 74248 ==

== ENCOUNTER 2025-02-10 12:51 | Outpatient (AMB) | payer MEDICARE, MEDICAID, SELFPAY ==
--- NOTE | 2025-02-10 12:54 | A.OFFVIS_ITS ---
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 is here? for the follow-up with complains on lower back pain. She reports mostly pain in the left side of the back and somehow she thinks that it is related to left-sided implanted spinal cord stimulator battery. However on physical exam attention was attracted that her loading test is positive on the left and there is significant tenderness on palpation in the projection of the lower lumbar spine. I would like to exclude possibility that this pain is coming from arthritis in the lower back. I will invite her for L2, L3, L4, dorsal ramus L5 left-sided medial branch blocks. She will start taking OTC arthritis Tylenol to help her pain. Prior: Very good results of [employer] SCS implant in the thoracic position. We have previously seen her multiple times for a lumbar radiculopathy and SI joint pain. She received two ESIs at L5/S1, in 12/2017 and again in 07/2018. This relieved her radiating leg pain significantly. She also had a left SI joint injection in 09/2018. She did have some ongoing SIJ pain, however she was improving slowly. MRI of the lumbar spine was reassuring, with mild pathology on the right, whereas her symptoms were on the left. She was advised gradual increase with exercise while performing her HEP. ?? ? Despite HEP her condition worsened back in beginning of 2019. She had failed prior treatment with PT, chiropractic treatment, SI belt, and multiple medications. ? She had very successful diagnostic sacroiliac joint innervation injection, reporting 100% pain relief for 5-6 hours? After the injection.? However when we applied radiofrequency ablation of sacroiliac joint she reported no pain relief whatsoever [facility] Medical History Anxiety GERD (gastroesophageal reflux disease) Anemia Hx of headache Panic attacks Depression Chronic back pain Asthma Chronic pain syndrome Sacroiliitis Lumbar radiculopathy, chronic Surgical History History of toe surgery Hx of cholecystectomy Hx of tubal ligation Hx of section Social History Alcohol intake: current Alcohol intake frequency: holidays/special occasions only Comment: medicated with Oxycodone as per order Patient Tobacco Use Status: Former Tobacco user Substance Use Type: Marijuana Review of Systems Const All systems reviewed & are unremarkable except as noted in HPI and below Physical Exam Vital Signs: Last Vital Signs Pulse 75 02/10/25 12:55 BP 131/83 02/10/25 12:55 Pulse Ox 99 02/10/25 12:55 Oxygen Delivery Method Room Air 02/10/25 12:55 BMI result Body Mass Index 24.8 Vital signs stable, afebrile Const General: cooperative, healthy appearing, comfortable and no acute distress Orientation/consciousness: patient oriented x3 Limitations: no limitations Chest Chest palpation & inspection: normal inspection of the chest Resp Effort & Inspection: normal respiratory effort, able to speak in complete sentences, normal respiratory pattern, no audible wheezes and no cough Cardio Jugular venous distension: no JVD Back/Spine/Pelvis Other: Very well-healed incision in the left upper buttock from the implantation of the [employer] spinal cord stimulator. Tenderness on patch patient in projection of the lower lumbar spine spinous processes. Loading test is positive on the left. Neuro General: patient oriented x3 Assessment & Plan Assessment & Plan (1) Lumbar radiculopathy, chronic: Code(s): M54.16 - Radiculopathy, lumbar region Category: Medical (2) Sacroiliitis: Code(s): M46.1 - Sacroiliitis, not elsewhere classified Category: Medical (3) Chronic pain syndrome: Comment: Seen and Rx by Dr Crane Code(s): G89.4 - Chronic pain syndrome Category: Medical Plan This patient is suffering from lower back pain for long period of time. Neuropathic pain and radiculopathic pain was treated with spinal cord stimulator . However axial back pain remains prominent. Loading test is positive on the left. She was subject of physical therapy multiple times when she was treated elsewhere. She denies help from physical therapy. I suspect her condition is spondylosis of the lumbar spine. I offered her and she agreed to go for left- sided L2, L3, L4, dorsal ramus L5 medial branch block diagnostic. Coding Level of Care Code Est Pt Level 3 (80344) Diagnoses Lumbar radiculopathy, chronic M54.16 Sacroiliitis M46.1 Chronic pain syndrome G89.4
[2025-02-10 12:55] VITALS: BP 131/83; PULSE 75; O2SAT 99; BMI 24.8
--- OUTSIDE RECORDS SUMMARY | 2025-02-10 14:58 | XMS_ITS | Clinical Summary ---
Author Organization [facility] ity Address [address] [place] [address] Care Team Providers Care Assistant Women'S Soccer Coach Name Role Phone Unavailable Primary Care Provider Unavailabl e Social History Tobacco Use Types Packs/Day Years Used Date Smoking Tobacco: Never Assessed Comments Unknown Sex and Gender Information Value Date Recorded Sex Assigned at Not on file Legal Sex Female 6:15 PM EST Gender Identity Not on file Sexual Orientation Not on file Plan of Treatment Health Maintenance Due Date Last Done Comments Breast Cancer Screening 1971 DTaP,Tdap,and Td Vaccines (1 - Tdap) 1990 Hepatitis B Vaccines (1 of 3 - 19+ 3-dose series) 1990 Cervical Cancer Screening: P ap Smear 1992 Pneumococcal Vaccine: 50+ Ye ars (1 of 1 - PCV) 2021 Zoster Vaccines (1 of 2) 2021 COVID-19 Vaccine ( - 2023-2 5 season) 2024 Influenza Vaccine (Season Ended) 2025 HIB Vaccines Aged Out No longer eligi ble based on patient's age to complete this topic HPV Vaccines Aged Out No longer eligi ble based on patient's age to complete this topic Hepatitis A Vaccines Aged Out No long er eligible based on patient's age to complete this topic IPV Vaccines Aged Out No longer eligi ble based on patient's age to complete this topic MMR Vaccines Aged Out No longer eligi ble based on patient's age to complete this topic Meningococcal ACWY Vaccine Aged Out N o longer eligible based on patient's age to complete this topic Meningococcal B Vaccine Aged Out No l onger eligible based on patient's age to complete this topic Pneumococcal Vaccine: Pediat rics (0 to 5 Years) and At-Risk Patients (6 to 64 Years) Aged Out No longer eligible b ased on patient's age to complete this topic RSV Immunization Patients Un yao 20 months Aged Out No longer eligible b ased on patient's age to complete this topic Varicella Vaccines Aged Out No longer eligible based on patient's age to complete this topic
== END 2025-02-10 13:15 | disposition home or self-care (01) ==
LOC: HO.PMC 12:52
PROVIDERS: PCP Family Medicine; Visit Provider Anesthesiology
DX: M54.16 Radiculopathy, lumbar region (principal); M46.1 Sacroiliitis, not elsewhere classified; G89.4 Chronic pain syndrome
CPT/HCPCS: 99213

== ENCOUNTER → 2025-02-10 12:51 | Outpatient (BNVA) | payer MEDICARE, MEDICAID, SELFPAY | PROVIDERS: PCP Family Medicine; Visit Provider Anesthesiology | DX: M54.16 Radiculopathy, lumbar region (principal); M46.1 Sacroiliitis, not elsewhere classified; G89.4 Chronic pain syndrome | CPT/HCPCS: 99212 ==

== ENCOUNTER 2025-05-17 06:19 | Outpatient (REF) | payer MEDICARE, MEDICAID, SELFPAY ==
--- NOTE | ~2025-05-17 | FL_ITS ---
EXAMINATION: FL GUIDANCE ONLY HISTORY: M47.816 - Spondylosis without myelopathy or radiculopathy, lumbar region COMPARISON: None available. TECHNIQUE: Fluoroscopy time: 0.5 minutes. Cumulative Dose: 6.34 mGy. DAP: 0.0732 mGym2 Images: 7. FINDINGS: Fluoroscopic spot films of the lumbar spine in the AP projection demonstrate needles and contrast material in the regions of the left L3-4, L4-5, and L5-S1 facet joints. FL/FL guidance in treatment room IMPRESSION: Fluoroscopy during procedure. Please see procedure report for additional information. Electronically signed by: Maulik Veloz MD 05/17/2025 01:19 PM EDT
--- OUTSIDE RECORDS SUMMARY | 2025-05-17 06:21 | XMS_ITS | Clinical Summary ---
Author Organization [facility] ity Address [address] [place] [address] Care Team Providers Care Laundry Operator Name Role Phone Unavailable Primary Care Provider [...] Vaccines (1 of 2) 2021 COVID-19 Vaccine (1 - 2023-2 5 season) 2024 Depression Screening 09/08/2024 Influenza Vaccine (#1) 2025 HIB Vaccines Aged Out No longer [...]
== END 2025-05-17 06:20 | disposition home or self-care (01) ==
LOC: CF 06:19
PROVIDERS: Visit Provider Anesthesiology
DX: M47.816 Spondylosis without myelopathy or radiculopathy, lumbar region (principal)
CPT/HCPCS: 64493; 64494; J2003; J2795; Q9967

== ENCOUNTER 2025-05-17 12:03 | Outpatient (AMB) | payer MEDICARE, MEDICAID, SELFPAY ==
--- NOTE | 2025-05-17 12:36 | MHC.OFFVIS ---
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 Allergies apple (APPLE) Allergy (Severe, Verified 02/10/25 12:58) ANAPHYLAXIS morphine (MORPHINE) Allergy (Severe, Verified 02/10/25 12:58) RASH naproxen (From NAPROSYN) Allergy (Severe, Verified 02/10/25 12:58) ANAPHYLAXIS shellfish derived (SHELLFISH DERIVED) Allergy (Severe, Verified 02/10/25 12:58) RASH green apples Allergy (Severe, Uncoded 05/25/21 13:12) Anaphylaxis seafood Allergy (Unknown, Uncoded 05/25/21 13:12) Rash PFSH Medical History Anxiety GERD (gastroesophageal reflux disease) Anemia Hx of headache Panic attacks Depression Chronic back pain Asthma Chronic pain syndrome Sacroiliitis Lumbar radiculopathy, chronic Surgical History History of toe surgery Hx of cholecystectomy Hx of tubal ligation Hx of section Social History Alcohol intake: current Alcohol intake frequency: holidays/special occasions only Comment: medicated with Oxycodone as per order Patient Tobacco Use Status: Former Tobacco user Substance Use Type: Marijuana Physical Exam Vital Signs: Last Vital Signs Pulse 65 05/17/25 12:37 Resp 18 05/17/25 12:37 BP 139/100 H 05/17/25 12:37 Pulse Ox 99 05/17/25 12:37 Oxygen Delivery Method Room Air 05/17/25 12:37 Assessment & Plan Assessment & Plan (1) Lumbar spondylosis: Code(s): M47.816 - Spondylosis without myelopathy or radiculopathy, lumbar region Category: Medical Plan Diagnostic medial branch block L2, L3,L4 dorsal ramus L5 on the left. ? ?Informed consent was explained to the patient. All questions were explained and? answered.? The patient was taken inside the operating room where he was positioned prone on the operating table. Time-out was performed delineating correct site, side, the nature of the procedure, patient's allergy, . All operating room staff was participating in OR time-out procedure. ? ? The lower back was prepped with ChloraPrep and draped with sterile utility towels.? C-arm was brought over the operating field and sq picture of L3, L4-, L5 vertebra and S1 AREA were delineated on the screen.? Point of interest were delineated as confluence of superior articular process of L3,L4 and L5 vertebraon the left with corresponding transverse processes as well as confluence of the sacral alae on the left with superior articular process of S1.? The projection of the point of interest to the skin were injected with the small amount of local anesthetic lidocaine 2% mixed with ropivacaine 0.5% 1-1 approximately 1 cc.? After that 22 gauge 3.5 inch spinal needle was driven sequentially to the points of interest in tunnel vision fashion. After needles gently contacted the bone at the point of interests the needle was injected with small amount of the contrast.? The injection of the contrast did not demonstrate any intravascular or intrathecal spread of the contrast.? After that injection of the? ropivacaine 0.5%-1cc was performed at each needle location.?After that the needles were removed and Bandaids were applied. Orders: Orders FL guidance in treatment room 05/17/25 M47.816 - Spondylosis without myelopathy or radiculopathy, lumbar region Coding Level of Care Code Procedure Only Diagnoses Lumbar spondylosis M47.816
[2025-05-17 12:37] VITALS: BP 139/100; PULSE 65; RESP 18; O2SAT 99
--- OUTSIDE RECORDS SUMMARY | 2025-05-17 14:32 | XMS_ITS | Clinical Summary ---
Author Organization [facility] ity Address [address] [place] [address] Care Team Providers Care Acid Tester Name Role Phone Unavailable Primary Care Provider [...]
== END 2025-05-17 13:12 | disposition home or self-care (01) ==
LOC: HO.PMCPRC 12:03
PROVIDERS: PCP Family Medicine; Visit Provider Anesthesiology
DX: M47.816 Spondylosis without myelopathy or radiculopathy, lumbar region (principal)
CPT/HCPCS: 64493; 64494

== ENCOUNTER 2025-05-19 09:38 | Outpatient (AMB) | payer MEDICARE, MEDICAID, SELFPAY ==
[2025-05-19 09:43] VITALS: BP 128/75; PULSE 79; RESP 18; O2SAT 99
--- NOTE | 2025-05-19 09:43 | MHC.OFFVIS ---
Vital Signs 05/19/25 09:43 Weight 184 lb BP 128/75 Blood Pressure Location Lt brachial Position Sitting Respiration 18 Pulse 79 Pulse Source Pulse Oximeter Pulse Oximetry (%) 99 Oxygen Delivery Method Room Air Intake Visit Reasons: S/P (L) Dx L2, L3, L4, Dorsal Ramus L5 MBB Allergies apple (APPLE) Allergy (Severe, Verified 05/19/25 09:45) ANAPHYLAXIS morphine (MORPHINE) Allergy (Severe, Verified 05/19/25 09:45) RASH naproxen (From NAPROSYN) Allergy (Severe, Verified 05/19/25 09:45) ANAPHYLAXIS shellfish derived (SHELLFISH DERIVED) Allergy (Severe, Verified 05/19/25 09:45) RASH green apples Allergy (Severe, Uncoded 05/25/21 13:12) Anaphylaxis seafood Allergy (Unknown, Uncoded 05/25/21 13:12) Rash HPI Comments Details: Bivian? is here? for the follow-up with complains on lower back pain. She reports mostly pain in the left side of the back and somehow she thinks that it is related to left-sided implanted spinal cord stimulator battery. However on physical exam attention was attracted that her loading test is positive on the left and there is significant tenderness on palpation in the projection of the lower lumbar spine. She had [employer] spinal cord stimulator performed which helps her radiculopathic pain. However she complains on axial back pain, I sent her for diagnostic medial branch block L2, L3, L4, L5 on the left side. The patient reported no improvement from this injections. The only thing I can offer to this patient is intrathecal pain pump to help her lower back pain. Unfortunately patient does not want any procedure further down help her pain. Prior: Very good results of [employer] SCS implant in the thoracic position. We have previously seen her multiple times for a lumbar radiculopathy and SI joint pain. She received two ESIs at L5/S1, in 12/2017 and again in 07/2018. This relieved her radiating leg pain significantly. She also had a left SI joint injection in 09/2018. She did have some ongoing SIJ pain, however she was improving slowly. MRI of the lumbar spine was reassuring, with mild pathology on the right, whereas her symptoms were on the left. She was advised gradual increase with exercise while performing her HEP. ?? ? Despite HEP her condition worsened back in beginning of 2019. She had failed prior treatment with PT, chiropractic treatment, SI belt, and multiple medications. ? She had very successful diagnostic sacroiliac joint innervation injection, reporting 100% pain relief for 5-6 hours? After the injection.? However when we applied radiofrequency ablation of sacroiliac joint she reported no pain relief whatsoever [facility] Medical History Anxiety GERD (gastroesophageal reflux disease) Anemia Hx of headache Panic attacks Depression Chronic back pain Asthma Chronic pain syndrome Sacroiliitis Lumbar radiculopathy, chronic Surgical History History of toe surgery Hx of cholecystectomy Hx of tubal ligation Hx of section Social History Alcohol intake: current Alcohol intake frequency: holidays/special occasions only Comment: medicated with Oxycodone as per order Patient Tobacco Use Status: Former Tobacco user Substance Use Type: Marijuana Review of Systems Const All systems reviewed & are unremarkable except as noted in HPI and below Physical Exam Vital Signs: Last Vital Signs Pulse 79 05/19/25 09:43 Resp 18 05/19/25 09:43 BP 128/75 05/19/25 09:43 Pulse Ox 99 05/19/25 09:43 Oxygen Delivery Method Room Air 05/19/25 09:43 Vital signs stable, afebrile Const General: cooperative, healthy appearing, comfortable and no acute distress Orientation/consciousness: patient oriented x3 Limitations: no limitations Chest Chest palpation & inspection: normal inspection of the chest Resp Effort & Inspection: normal respiratory effort, able to speak in complete sentences, normal respiratory pattern, no audible wheezes and no cough Cardio Jugular venous distension: no JVD Back/Spine/Pelvis Other: Very well-healed incision in the left upper buttock from the implantation of the [employer] spinal cord stimulator. Tenderness on patch patient in projection of the lower lumbar spine spinous processes. Loading test is positive on the left. Neuro General: patient oriented x3 Assessment & Plan Assessment & Plan (1) Lumbar radiculopathy, chronic: Code(s): M54.16 - Radiculopathy, lumbar region Category: Medical (2) Sacroiliitis: Code(s): M46.1 - Sacroiliitis, not elsewhere classified Category: Medical (3) Chronic pain syndrome: Comment: Seen and Rx by Dr Crane Code(s): G89.4 - Chronic pain syndrome Category: Medical Plan This patient is suffering from lower back pain for long period of time. Neuropathic pain and radiculopathic pain was treated with spinal cord stimulator [employer].. However axial back pain remains prominent. Loading test was positive on the left. She was subject of physical therapy multiple times when she was treated elsewhere. She denies help from physical therapy. I performed diagnostic left-sided L2-L3 L4 dorsal ramus L5 medial branch block however she reported no pain from this procedure. I could offer her only pain pump trying to alleviate her pain. However she does not want this procedure to be performed. No new appointment will be scheduled. Patient will give us a call and schedule a new appointment as needed. Coding Level of Care Code Est Pt Level 3 (39106) Diagnoses Lumbar radiculopathy, chronic M54.16 Sacroiliitis M46.1 Chronic pain syndrome G89.4
--- OUTSIDE RECORDS SUMMARY | 2025-05-19 11:17 | XMS_ITS | Clinical Summary ---
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
== END 2025-05-19 09:59 | disposition home or self-care (01) ==
LOC: HO.PMC 09:39
PROVIDERS: PCP Family Medicine; Visit Provider Anesthesiology
DX: M54.16 Radiculopathy, lumbar region (principal); M46.1 Sacroiliitis, not elsewhere classified; G89.4 Chronic pain syndrome
CPT/HCPCS: 99213

== ENCOUNTER → 2025-05-19 09:38 | Outpatient (BNVA) | payer MEDICARE, MEDICAID, SELFPAY | PROVIDERS: PCP Family Medicine; Visit Provider Anesthesiology | DX: M54.16 Radiculopathy, lumbar region (principal); M46.1 Sacroiliitis, not elsewhere classified; G89.4 Chronic pain syndrome | CPT/HCPCS: 99212 ==